=== PATIENT | female | born 1985 | race Caucasian/White ===

== ENCOUNTER 2023-01-17 11:46 | Emergency (ER) | payer OTHER, SELFPAY ==
[2023-01-17 12:07] VITALS: BP 120/81; PULSE 78; RESP 16; TEMP 36.8; O2SAT 98; BMI 22.8
[2023-01-17 12:20] VITALS: O2SAT 98
--- NOTE | 2023-01-17 12:25 | ED_ITS ---
HPI - Skin/Abscess/Foreign Bdy General Chief complaint: Skin/Abscess/Foreign Body Stated complaint: FACIAL SWELLING Time Seen by Provider: 01/17/23 12:17 Source: patient Mode of arrival: walk-in History of Present Illness HPI narrative: his patient's here with a tender sore area in her upper right lip extending implement up into her nasal area. She 1st started noticing it forty-eight hours ago but got much worse this morning. She has not had any previous skin infections or MRSA. She does not have any history of immunocompromising diseases diabetes or alcohol abuse. She's not had fever shakes or chills. She does not have any difficulty breathing. Related Data Allergies Allergy/AdvReac Type Severity Reaction Status Date / Time No Known Drug Allergies Allergy Verified 01/17/23 12:10 Exam Narrative Exam Narrative: awake alert pleasant. She got a palpable 2 cm abscess with a purulent area just within the nasal orifice on the right side. The left nares is normal. The rest craniofacial structures are normal extraocular muscles normal. Her tongue lip oral cavity floor the mouth cervical area are all unremarkable. This will need drainage and this was discussed with the patient. Constitutional Vital Signs, click to edit/add: Last Vital Signs Temp 98.2 F 01/17/23 12:07 Pulse 78 01/17/23 12:07 Resp 16 01/17/23 12:07 BP 120/81 01/17/23 12:07 Pulse Ox 98 01/17/23 12:20 O2 Del Method Room Air 01/17/23 12:20 Course Vital Signs Vital signs: Vital Signs Temperature 98.2 F 01/17/23 12:07 Pulse Rate 78 01/17/23 12:07 Respiratory Rate 16 01/17/23 12:07 Blood Pressure 120/81 01/17/23 12:07 Pulse Oximetry 98 01/17/23 12:07 Oxygen Delivery Method Room Air 01/17/23 12:07 Temperature 98.2 F 01/17/23 12:07 Pulse Rate 78 01/17/23 12:07 Respiratory Rate 16 01/17/23 12:07 Blood Pressure 120/81 01/17/23 12:07 Pulse Oximetry 98 01/17/23 12:20 Oxygen Delivery Method Room Air 01/17/23 12:20 MDM - Skin/Abscess/Foreign Bdy MDM Narrative Medical decision making narrative: procedure note/after lidocaine one percent aneesthesia with epinephrine this a randal was gently cleansed with Betadine and then a #11 blade was used to make a 4 mm incision in the area of maximum swelling and tenderness. There is a good amount of purulent material recovered. More mature was recovered after probing the area with a hemostat and with firm pressure. She tolerated very well. At this stage of advised her to get a gram of Rocephin of Ancef intravenously to facilitate achieving therapeutic levels. We'll then place her on doxycycline and Keflex. She's follow-up with primary care doctor within seventy-two hours. Discharge Plan Discharge Chief Complaint: Skin/Abscess/Foreign Body Clinical Impression: Abscess of face Patient Disposition: Home, Self-Care Time of Disposition Decision: 13:36 Additional Instructions: warm compresses Tylenol with Codeine as needed/doxycycline/Keflex Stand Alone Forms: Portal Instructions Referrals: Pedrito Hutchins MD [Primary Care Provider] - 1 week
[2023-01-17] MEDS: LIDOCAINE HCL 1%-EPINEPHRINE 1:100,000 20 ML MDV 10 ML INJ (12:52)
[2023-01-17 13:21] VITALS: BP 140/81; PULSE 78; RESP 18; O2SAT 99
[2023-01-17 13:42] VITALS: BP 146/90; PULSE 80; RESP 16; O2SAT 99
== END 2023-01-17 13:45 | disposition home or self-care (01) ==
PROVIDERS: Emergency Provider Emergency Medicine Emergency Medical Services; PCP Family Medicine
DX: L02.01 Cutaneous abscess of face (principal)
CPT/HCPCS: 10060; 96374; 99284

== ENCOUNTER 2023-02-03 20:11 | Outpatient (REF) | payer OTHER, SELFPAY ==
[2023-02-09 12:08] LABS: Age Gdln ACOG Testing Note (.); HPV Aptima Negative (Negative); IGP, Aptima HPV, rfx 16/18,45 Note (.)
== END 2023-02-03 20:12 | disposition home or self-care (01) ==
LOC: LAB 20:11
PROVIDERS: PCP Family Medicine; Visit Provider Obstetrics & Gynecology
DX: Z01.419 Encounter for gynecological examination (general) (routine) without abnormal findings (principal)
CPT/HCPCS: 87624; G0145

== ENCOUNTER 2023-06-13 08:25 | Outpatient (OUT) | payer MEDICAID, SELFPAY ==
--- OUTSIDE RECORDS SUMMARY | 2023-06-13 08:27 | XMS_ITS | CCD ---
Author Name Unknown Address [address] [place] [address] Organization [facility] Team Providers Care Tube Inspector Name Role Phone TEJAL, DR ROSA Primary Care Unavailable NEDRA, DR CAPUTO Attending Unavailable NEDRA, DR CAPUTO Admitting Unavailable HOY, DR ROSA Consulting Unavailable LISAY, DR ROSA Attending Unavailable HOY, DR ROSA Admitting Unavailable LISAY, DR ROSA Primary Care Unavailable HOY, DR ROSA Consulting Unavailable TEJAL, DR ROSA Attending Unavailable HOY, DR ROSA Admitting Unavailable HOY, DR ROSA Primary Care Unavailable HOClaudia, DR ROSA Primary Care Unavailable NEDRA, DR CAPUTO Consulting Unavailable NEDRA, DR CAPUTO Attending Unavailable NEDRA, DR CAPUTO Admitting Unavailable HOY, DR ROSA Consulting Unavailable TEJAL, DR ROSA Admitting Unavailable LISAY, DR ROSA Primary Care Unavailable TEJAL, DR ROSA Attending Unavailable WEST, DR SARAN Cano Consulting Unavailable TEJAL, DR ROSA Primary Care Unavailable NEDRA, DR CAPUTO Attending Unavailable NEDRA, DR CAPUTO Admitting Unavailable NEDRA, DR CAPUTO Consulting Unavailable TEJAL, DR ROSA Primary Care Unavailable NEDRA, DR CAPUTO Attending Unavailable NEDRA, DR CAPUTO Admitting Unavailable TEJAL, DR ROSA Consulting Unavailable TEJAL, DR ROSA Admitting Unavailable TEJAL, DR ROSA Primary Care Unavailable TEJAL, DR ROSA Attending Unavailable TEJAL, DR ROSA Primary Care Unavailable NEDRA, DR CAPUTO Consulting Unavailable NEDRA, DR CAPUTO Attending Unavailable NEDRA, DR CAPUTO Admitting Unavailable TEJAL, DR ROSA Consulting Unavailable TEJAL, DR ROSA Attending Unavailable TEJAL, DR ROSA Admitting Unavailable TEJAL, DR ROSA Primary Care Unavailable SEVEN CHERRY Attending Unavailable TEJAL, DR ROSA Primary Care Unavailable SEVEN CHERRY Admitting Unavailable SEVEN CHERRY Consulting Unavailable Problems Active Problems Problem Classification Problem Date Documented Date Episodic/Chronic Disorders of lipid metabolism (4 sources) Pure hypercholesterolemia, unspecified; Translations: [PURE HYPERCHOLESTEROLEMIA UNSPEC] Onset: 3 Chronic Headache; including migraine (4 sources) Headache; including migraine; Translations: [HEADACHE UNSPECIFIED] Onset: 2 Other female genital disorders (1 source) Abnormal uterine and vaginal bleeding, unspecified; Translations: [ABNORMAL UTERINE VAGINAL BLEED UNS] Onset: 2 Chronic Other upper respiratory infections (1 source) Chronic sinusitis, unspecified; Translations: [CHRONIC SINUSITIS UNSPECIFIED] Onset: 2 Chronic Unclassified (2 sources) CONTACT W/AND (SUSP) EXPOS COVID-19; Translations: [CONTACT W/AND (SUSP) EXPOS COVID-19] Onset: 2 Viral infection (1 source) COVID-19; Translations: [COVID-19] Onset: 2 Past or Other Problems Problem Classification Problem Date Documented Date Episodic/Chronic Deficiency and other anemia (1 source) Anemia, unspecified; Translations: [ANEMIA UNSPECIFIED] Onset: 12-10-2021 Episodic Diabetes mellitus without complication (1 source) Other abnormal glucose; Translations: [OTHER ABNORMAL GLUCOSE] Onset: 12-10-2021 Episodic Diabetes or abnormal glucose tolerance complicating ; childbirth; or the puerperium (4 sources) Personal history of gestational diabetes; Translations: [PERSONAL HISTORY GESTATIONAL DIAB] Onset: 05-25-2021 Episodic Disorders of teeth and jaw (4 sources) Other specified disorders of teeth and supporting structures; Translations: [OTH SPEC DISORDERS TEETH SUPP STRCT] Onset: 01-29-2022 Episodic Immunizations and screening for infectious disease (1 source) Encounter for screening for human papillomavirus (HPV); Translations: [ENC SCREENING HUMAN PAPILLOMAVIRUS] Onset: 01-16-2022 Episodic Other screening for suspected conditions (not mental disorders or infectious disease) (4 sources) Encounter for screening for malignant neoplasm of cervix; Translations: [ENC SCREENING MALIG NEOPLASM CERV] Onset: 01-14-2022 Episodic Syncope (4 sources) Syncope and collapse; Translations: [SYNCOPE AND COLLAPSE] Onset: 12-07-2021 Episodic Unclassified (1 source) CONTACT W/AND (SUSP) EXPOS COVID-19; Translations: [CONTACT W/AND (SUSP) EXPOS COVID-19] Onset: 10-02-2021 Results Test Name Value Interpretation Reference Range Facility LIPID PROFILEon 05-17-2022 CHOL-HDL RATIO NORM SEE BELOW Normal [facility] Comment on above: Result Comment: 3.3 - 4.4 LOW RISK 4.4 - 7.1 AVERAGE RISK 7.1 - 11.0 MODERATE RISK >11.0 HIGH RISK Performed By: #### C MP, LIPID #### [facility] [address] [address] [address] Heather Bowser Cholesterol [Mass/Vol] 209 mg/dL Critically high <=200 [facility] Comment on above: Performed By: #### C MP, LIPID #### [facility] [address] [address] [address] Heather Bowser Cholesterol in HDL [Mass/Vol] 63 mg/dL Critically high 40-60 [facility] Comment on above: Performed By: #### C MP, LIPID #### [facility] [address] [address] [address] Heather Bowser Cholesterol in LDL [Mass/Vol] 123.2 mg/dL Normal [facility] Comment on above: Performed By: #### C MP, LIPID #### [facility] [address] [address] [address] Heather Bowser Cholesterol.total/Cho lesterol in HDL [Mass ratio] 3.3 {ratio} Normal [facility] Comment on above: Performed By: #### C MP, LIPID #### [facility] [id number] Heather Bowser HDL NORMAL > or = 60 mg/dl - LO W CARDIOVASCULAR RISK <40 mg/dl - HIGH CARDIOVASCULAR RISK Normal [facility] Comment on above: Performed By: #### C MP, LIPID #### [facility] [address] [address] [address] Heather Bowser LDL CALC NORMAL SEE BELOW Normal [facility] Comment on above: Result Comment: <100 mg/dl OPTIMAL 100 - 129 mg/dl NEAR OR ABOVE OPTIMAL 130 - 159 mg/dl BORDERLINE HIGH 160 - 189 mg/dl HIGH >190 mg/dl VERY HIGH Performed By: #### C MP, LIPID #### [facility] [address] [place] [address] Dr. Heather Bowser Triglyceride [Mass/Vol] 114 mg/dL Normal <=150 [facility] Comment on above: Performed By: #### C MP, LIPID #### [facility] [address] [place] [address] Dr. Heather Bowser VLDL CALC 22.8 mg/dL Normal [facility] Comment on above: Performed By: #### C MP, LIPID #### [facility] [address] [place] [address] Dr. Heather Bowser PROF 14(COMP METB)on 023 Albumin [Mass/Vol] 4.0 g/dL Normal 3.4-5.0 [facility] Comment on above: Performed By: #### C MP, LIPID #### [facility] [address] [place] [address] Dr. Heather Bowser Albumin/Globulin [Mass ratio] 0.9 {ratio} Normal [facility] Comment on above: Performed By: #### C MP, LIPID #### [facility] [address] [place] [address] Dr. Heather Bowser ALP [Catalytic activity/Vol] 65 U/L Normal 46-116 [facility] Comment on above: Performed By: #### C MP, LIPID #### [facility] [address] [place] [address] Dr. Heather Bowser ALT [Catalytic activity/Vol] 17 U/L Normal 14-59 [facility] Comment on above: Performed By: #### C MP, LIPID #### [facility] [address] [place] [address] Dr. Heather Bowser Anion gap [Moles/Vol] 12.7 mmol/L Normal [facility] Comment on above: Performed By: #### C MP, LIPID #### [facility] [address] [place] [address] Dr. Heather Bowser AST [Catalytic activity/Vol] 20 U/L Normal 15-37 [facility] Comment on above: Performed By: #### C MP, LIPID #### [facility] [address] [address] [address] Heather Bowser Bilirubin [Mass/Vol] 1.0 mg/dL Normal 0.2-1.0 [facility] Comment on above: Performed By: #### C MP, LIPID #### [facility] [address] [place] [address] Dr. Heather Bowser Calcium [Mass/Vol] 9.4 mg/dL Normal 8.5-10.1 [facility] Comment on above: Performed By: #### C MP, LIPID #### [facility] [address] [place] [address] Dr. Heather Bowser Chloride [Moles/Vol] 104 mmol/L Normal 98-107 [facility] Comment on above: Performed By: #### C MP, LIPID #### [facility] [address] [place] [address] Dr. Heather Bowser CO2 [Moles/Vol] 28.3 mmol/L Normal 21.0-32.0 [facility] Comment on above: Performed By: #### C MP, LIPID #### [facility] [address] [place] [address] Dr. Heather Bowser Creatinine [Mass/Vol] 0.60 mg/dL Normal 0.55-1.02 [facility] Comment on above: Performed By: #### C MP, LIPID #### [facility] [address] [place] [address] Dr. Heather Bowser EGFR-AF SOUTH KOREAN >60 Normal >=60 [facility] Comment on above: Performed By: #### C MP, LIPID #### [facility] [address] [place] [address] Dr. Heather Bowser EGFR-NON AF [place]OREAN >60 Normal >=60 [facility] Comment on above: Performed By: #### C MP, LIPID #### [facility] [address] [place] [address] Dr. Heather Bowser Globulin (S) [Mass/Vol] 4.3 g/dL Normal [facility] Comment on above: Performed By: #### C MP, LIPID #### [facility] [address] [place] [address] Dr. Heather Bowser Glucose [Mass/Vol] 88 mg/dL Normal 74-106 [facility] Comment on above: Performed By: #### C MP, LIPID #### [facility] [address] [place] [address] Dr. Heather Bowser Potassium [Moles/Vol] 4.0 mmol/L Normal 3.5-5.1 [facility] Comment on above: Performed By: #### C MP, LIPID #### [facility] [address] [place] [address] Dr. Heather Bowser Protein [Mass/Vol] 8.3 g/dL Critically high 6.4-8.2 [facility] Comment on above: Performed By: #### C MP, LIPID #### [facility] [address] [place] [address] Dr. Heather Bowser Sodium [Moles/Vol] 141 mmol/L Normal 136-145 [facility] Comment on above: Performed By: #### C MP, LIPID #### [facility] [address] [place] [address] Dr. Heather Bowser Urea nitrogen [Mass/Vol] 12.0 mg/dL Normal 7.0-18.0 [facility] Comment on above: Performed By: #### C MP, LIPID #### [facility] [address] [place] [address] Dr. Heather Bowser Urea nitrogen/Creatinine [Mass ratio] 20.0 mg/mg Normal [facility] Comment on above: Performed By: #### C MP, LIPID #### [facility] [address] [place] [address] Dr. Heather Bowser XR SINUS WATERon 02-09-2022 XR SINUS WATER EXAMINATION: XR SINU S WATER HISTORY: Sinusitis COMPARISON: No relevant comparison available. FINDINGS: MAXILLARY: No mucosal thickening or fluid level. ETHMOID: No mucosal thickening or fluid level. OTHER: Negative. IMPRESSION: Clear paranasal sinuses Electronically authenticated by: SARAN VELASCO Date: 2022-02-09 08:40 Normal [facility] CBC AUTO DIFFon 02-08-2022 BASO # 0.1 103/ul Normal 0.0-0.1 [facility] Comment on above: Performed By: #### A 1C #### [facility] [address] [place] [address] Dr. Heather Bowser Basophils/100 WBC (Bld) 0.6 % Normal 0.2-2.0 [facility] Comment on above: Performed By: #### A 1C #### [facility] [address] [place] [address] Dr. Heather Bowser EO # 0.1 103/ul Normal 0.0-0.7 [facility] Comment on above: Performed By: #### A 1C #### [facility] [address] [place] [address] Dr. Heather Bowser Eosinophils/100 WBC (Bld) 1.4 % Normal 0.9-7.0 [facility] Comment on above: Performed By: #### A 1C #### [facility] [address] [place] [address] Dr. Heather Bowser Erythrocyte distribution width (RBC) [Ratio] 12.9 % Normal 11.0-15.0 [facility] Comment on above: Performed By: #### A 1C #### [facility] [address] [place] [address] Dr. Heather Bowser Hematocrit (Bld) [Volume fraction] 40.9 % Normal 36.0-48.0 [facility] Comment on above: Performed By: #### A 1C #### [facility] [address] [place] [address] Dr. Heather Bowser Hemoglobin (Bld) [Mass/Vol] 13.7 g/dL Normal 12.0-16.0 [facility] Comment on above: Performed By: #### A 1C #### [facility] [address] [place] [address] Dr. Heather Bowser IG # 0.02 10e3/ul Normal 0.00-0.03 [facility] Comment on above: Performed By: #### A 1C #### [facility] [address] [place] [address] Dr. Heather Bowser IG % 0.2 % Normal 0.0-0.5 [facility] Comment on above: Performed By: #### A 1C #### [facility] [address] [place] [address] Dr. Heather Bowser LYMPH # 2.3 103/ul Normal 1.2-3.8 [facility] Comment on above: Performed By: #### A 1C #### [facility] [address] [place] [address] Dr. Heather Bowser Lymphocytes/100 WBC (Bld) 27.6 % Normal 20.5-60.0 [facility] Comment on above: Performed By: #### A 1C #### [facility] [address] [place] [address] Dr. Heather Bowser MANUAL DIFF REQ NO Normal [facility] Comment on above: Performed By: #### A 1C #### [facility] [address] [place] [address] Dr. Heather Bowser MCH (RBC) [Entitic mass] 32.4 pg Normal 26.7-34.0 [facility] Comment on above: Performed By: #### A 1C #### [facility] [address] [place] [address] Dr. Heather Bowser MCHC (RBC) [Mass/Vol] 33.5 g/dL Normal 29.9-35.2 [facility] Comment on above: Performed By: #### A 1C #### [facility] [address] [place] [address] Dr. Heather Bowser MCV (RBC) [Entitic vol] 96.7 fL Normal 81.0-99.0 [facility] Comment on above: Performed By: #### A 1C #### [facility] [address] [place] [address] Dr. Heather Bowser MONO # 0.5 103/ul Normal 0.3-0.8 [facility] Comment on above: Performed By: #### A 1C #### [facility] [address] [place] [address] Dr. Heather Bowser Monocytes/100 WBC (Bld) 6.3 % Normal 1.7-12.0 [facility] Comment on above: Performed By: #### A 1C #### [facility] [address] [place] [address] Dr. Heather Bowser NEUT # 5.4 103/ul Normal 1.4-6.5 [facility] Comment on above: Performed By: #### A 1C #### [facility] [address] [place] [address] Dr. Heather Bowser Neutrophils/100 WBC (Bld) 63.9 % Normal 43.0-75.0 [facility] Comment on above: Performed By: #### A 1C #### [facility] [address] [place] [address] Dr. Heather Bowser Platelet mean volume (Bld) [Entitic vol] 10.3 fL Normal 9.5-13.5 [facility] Comment on above: Performed By: #### A 1C #### [facility] [address] [place] [address] Dr. Heather Bowser PLT 306 103/ul Normal 150-450 [facility] Comment on above: Performed By: #### A 1C #### [facility] [address] [place] [address] Dr. Heather Bowser RBC 4.23 106/ul Normal 4.20-5.40 [facility] Comment on above: Performed By: #### A 1C #### [facility] [address] [place] [address] Dr. Heather Bowser WBC 8.4 103/ul Normal 4.0-11.0 [facility] Comment on above: Performed By: #### A 1C #### [facility] [address] [place] [address] Dr. Heather Bowser GLYCOHEMOGLOBIN A1Con 2021 ADA RECOMMENDATION SEE BELOW Normal [facility] Comment on above: Result Comment: ADA RECOMMENDED LIMIT 4.0 - 6.0 ADA THERAPEUTIC TARGET < 7.0 ACTION SUGGESTED > 7.0 Performed By: #### C MP, LIPID #### [facility] [address] [place] [address] Dr. Heather Bowser Glucose [Mass/Vol] 108 mg/dL Normal [facility] Comment on above: Performed By: #### C MP, LIPID #### [facility] [address] [address] [address] Heather Bowser HbA1c (Bld) [Mass fraction] 5.4 % Normal 4.5-6.2 [facility] Comment on above: Performed By: #### C MP, LIPID #### [facility] [address] [address] [address] Heather Bowser PREG QUANT HCGon 02-08-2022 HCG QUANT <1 Normal [facility] Comment on above: Performed By: #### C MP, LIPID #### [facility] [address] [place] [address] Dr. Heather Bowser HCG RANGE SEE BELOW Normal [facility] Comment on above: Result Comment: 5-50 0.2-1 WEEK 50-500 1-2 WEEKS 100-5,000 2-3 WEEKS 500-10,000 3-4 WEEKS 1,000-50,000 4-5 WEEKS 10,000-100,000 5-6 WEEKS 15,000-200,000 6-8 WEEKS 10,000-100,000 2-3 MONTHS Performed By: #### C MP, LIPID #### [facility] [address] [place] [address] Dr. Heather Bowser PROTIMEon 02-08-2022 INR Coag (PPP) [Relative time] 0.95 {INR} Normal [facility] Comment on above: Performed By: #### C MP, LIPID #### [facility] [address] [place] [address] Dr. Heather Bowser INR GUIDELINES SEE BELOW Normal [facility] Comment on above: Result Comment: AUGUSTUS RED INR: 2.0 - 3.0 CONDITIONS NOT LISTED BELOW 2.5 - 3.5 FOR PROSTHETIC HEART VALVE REPLACEMENT 2.5 - 3.5 RECURRENT THROMBOSIS Performed By: #### C MP, LIPID #### [facility] [address] [place] [address] Dr. Heather Bowser PT Coag (PPP) [Time] 10.3 s Normal 9.0-11.6 [facility] Comment on above: Performed By: #### C MP, LIPID #### [facility] [address] [place] [address] Dr. Heather Bowser PTTon 02-08-2022 aPTT Coag (Bld) [Time] 26.8 s Normal 22.3-36.2 [facility] Comment on above: Performed By: #### C MP, LIPID #### [facility] [address] [address] [address] Heather Bowser TSHon 02-08-2022 TSH 1.356 uIU/mL Normal 0.358-3.740 [facility] Comment on above: Performed By: #### C MP, LIPID #### [facility] [address] [place] [address] Dr. Heather Bowser PAP ACOG PANEL 2: 30 to 65on 01-20-2022 . . Normal [facility] Comment on above: Result Comment: Perf ormed at: BA Performed By: #### C MP, LIPID #### [facility] [address] [place] [address] Dr. Heather Bowser Age Gdln ACOG Testing 30-65 Normal [facility] Comment on above: Performed By: #### C MP, LIPID #### [facility] [address] [place] [address] Dr. Heather Bowser DIAGNOSIS: Comment Normal [facility] Comment on above: Result Comment: UNSA TISFACTORY FOR EVALUATION. THIS SPECIMEN WAS RESCREENED PART OF OUR RUBBER CUTTING MACHINE TENDER PROGRAM. Performed at: BA Performed By: #### C MP, LIPID #### [facility] [address] [place] [address] Dr. Heather Bowser HPV Aptima Negative Normal Negative [facility] Comment on above: Result Comment: This nucleic acid amplification test detects fourteen high-risk HPV types (16,18,31,33,35,39,45,51,52,56,58,59,66,68) without differentiation. Performed at: =G Performed By: #### C MP, LIPID #### [facility] [address] [place] [address] Dr. Heather Bowser Methodology: Comment Normal [facility] Comment on above: Result Comment: This liquid based ThinPrep(R) pap test was screened with the use of an image guided system. Performed at: WB Performed By: #### C MP, LIPID #### [facility] [address] [place] [address] Dr. Heather Bowser Note: Comment Normal [facility] Comment on above: Result Comment: The Pap smear is a screening test designed to aid in the detection of premalignant and malignant conditions of the uterine cervix. It is not a diagnostic procedure and should not be used as the sole means of detecting cervical cancer. Both false-positive and false-negative reports do occur. . Performed at: WB Performed By: #### C MP, LIPID #### [facility] [address] [place] [address] Dr. Heather Bowser Performed by: Comment Normal [facility] Comment on above: Result Comment: Mark Kline, Dental Laboratory Supervisor (ASCP) Performed at: BA Performed By: #### C MP, LIPID #### [facility] [address] [place] [address] Dr. Heather Bowser QC reviewed by: Comment Normal [facility] Comment on above: Result Comment: Yin Infante, Dental Laboratory Supervisor (ASCP) Performed at: BA Performed By: #### C MP, LIPID #### [facility] [address] [place] [address] Dr. Heather Bowser Specimen adequacy: Comment Normal [facility] Comment on above: Result Comment: Spec imen processed and examined but unsatisfactory for evaluation of epithelial abnormality because of insufficient cellularity. Performed at: BA Performed By: #### C MP, LIPID #### [facility] [address] [address] [address] Heather Bowser T4, T3U, FTI LABCORPon 12-11 Free Thyroxine Index 2.7 Normal 1.2-4.9 [facility] Comment on above: Performed By: #### A 1C #### [facility] [address] [place] [address] Dr. Heather Bowser T3 Uptake 34 % Normal 24-39 [facility] Comment on above: Performed By: #### A 1C #### [facility] [address] [place] [address] Dr. Heather Bowser T4 [Mass/Vol] 7.8 ug/dL Normal 4.5-12.0 [facility] Comment on above: Performed By: #### A 1C #### [facility] [address] [place] [address] Dr. Heather Bowser LIVIER DIRECTon 12-10-2021 LIVIER Direct Negative Normal Negative [facility] Comment on above: Performed By: #### C MP, LIPID #### [facility] [address] [place] [address] Dr. Heather Bowser INSULINon 12-10-2021 Insulin 9.1 uIU/mL Normal 2.6-24.9 [facility] Comment on above: Performed By: #### A 1C #### [facility] [address] [place] [address] Dr. Heather Bowser ANTISTREPTOLYSIN O AB (ASO)o n 12-08-2021 Antistreptolysin O Ab 20.5 IU/mL Normal 0.0-200.0 [facility] Comment on above: Performed By: #### A 1C #### [facility] [address] [place] [address] Dr. Heather Bowser RHEUMATOID FACTORon 12-09-19 RA Latex Turbid. <10.0 Normal <14.0 [facility] Comment on above: Performed By: #### A 1C #### [facility] [address] [place] [address] Dr. Heather Bowser CBC AUTO DIFFon 12-07-2021 BASO # 0.0 103/ul Normal 0.0-0.1 [facility] Comment on above: Performed By: #### C MP, LIPID #### [facility] [address] [place] [address] Dr. Heather Bowser Basophils/100 WBC (Bld) 0.3 % Normal 0.2-2.0 [facility] Comment on above: Performed By: #### C MP, LIPID #### [facility] [address] [address] [address] Heather Bowser EO # 0.0 103/ul Normal 0.0-0.7 [facility] Comment on above: Performed By: #### C MP, LIPID #### [facility] [address] [address] [address] Heather Bowser Eosinophils/100 WBC (Bld) 0.2 % Critically low 0.9-7.0 [facility] Comment on above: Performed By: #### C MP, LIPID #### [facility] [address] [address] [address] Heather Bowser Erythrocyte distribution width (RBC) [Ratio] 12.9 % Normal 11.0-15.0 [facility] Comment on above: Performed By: #### C MP, LIPID #### [facility] [address] [place] [address] Dr. Heather Bowser Hematocrit (Bld) [Volume fraction] 43.0 % Normal 36.0-48.0 [facility] Comment on above: Performed By: #### C MP, LIPID #### [facility] [address] [place] [address] Dr. Heather Bowser Hemoglobin (Bld) [Mass/Vol] 14.2 g/dL Normal 12.0-16.0 [facility] Comment on above: Performed By: #### C MP, LIPID #### [facility] [address] [address] [address] Heather Bowser IG # 0.15 10e3/ul Critically high 0.00-0.03 [facility] Comment on above: Performed By: #### C MP, LIPID #### [facility] [address] [place] [address] Dr. Heather Bowser IG % 1.0 % Critically high 0.0-0.5 [facility] [place] [facility] Comment on above: Performed By: #### C MP, LIPID #### [facility] [address] [place] [address] Dr. Heather Bowser LYMPH # 4.4 103/ul Critically high 1.2-3.8 [facility] [place] Comment on above: Performed By: #### C MP, LIPID #### [facility] [address] [address] [address] Heather Bowser Lymphocytes/100 WBC (Bld) 30.6 % Normal 20.5-60.0 [facility] Comment on above: Performed By: #### C MP, LIPID #### [facility] [address] [address] [address] Heather Bowser MANUAL DIFF REQ NO Normal [facility] [place] Comment on above: Performed By: #### C MP, LIPID #### [facility] [address] [address] [address] Heather Bowser MCH (RBC) [Entitic mass] 32.1 pg Normal 26.7-34.0 [facility] Comment on above: Performed By: #### C MP, LIPID #### [facility] [address] [place] [address] Dr. Heather Bowser MCHC (RBC) [Mass/Vol] 33.0 g/dL Normal 29.9-35.2 [facility] Comment on above: Performed By: #### C MP, LIPID #### [facility] [address] [address] [address] Heather Bowser MCV (RBC) [Entitic vol] 97.1 fL Normal 81.0-99.0 [facility] Comment on above: Performed By: #### C MP, LIPID #### [facility] [address] [address] [address] Heather Bowser MONO # 1.3 103/ul Critically high 0.3-0.8 [facility] [place] Comment on above: Performed By: #### C MP, LIPID #### [facility] [address] [address] [address] Heather Bowser Monocytes/100 WBC (Bld) 8.7 % Normal 1.7-12.0 [facility] Comment on above: Performed By: #### C MP, LIPID #### [facility] [address] [address] [address] Heather Bowser NEUT # 8.6 103/ul Critically high 1.4-6.5 [facility] Comment on above: Performed By: #### C MP, LIPID #### [facility] [address] [address] [address] Heather Bowser Neutrophils/100 WBC (Bld) 59.2 % Normal 43.0-75.0 [facility] Comment on above: Performed By: #### C MP, LIPID #### [facility] [address] [address] [address] Heather Bowser Platelet mean volume (Bld) [Entitic vol] 9.6 fL Normal 9.5-13.5 [facility] Comment on above: Performed By: #### C MP, LIPID #### [facility] [address] [address] [address] Heather Bowser PLT 353 103/ul Normal 150-450 [facility] Comment on above: Performed By: #### C MP, LIPID #### [facility] [address] [address] [address] Heather Bowser RBC 4.43 106/ul Normal 4.20-5.40 [facility] Comment on above: Performed By: #### C MP, LIPID #### [facility] [address] [address] [address] Heather Bowser WBC 14.5 103/ul Critically high 4.0-11.0 [facility] Comment on above: Performed By: #### C MP, LIPID #### [facility] [address] [address] [address] Heather Bowser CRPon 12-07-2021 CRP [Mass/Vol] mg/L Normal <=1.0 [facility] Comment on above: Performed By: #### C MP, TSH, CRP, LIPID, URIC #### [facility] [address] [address] [address] Heather Bowser GLYCOHEMOGLOBIN A1Con 2021 ADA RECOMMENDATION SEE BELOW Normal [facility] Comment on above: Result Comment: ADA RECOMMENDED LIMIT 4.0 - 6.0 ADA THERAPEUTIC TARGET < 7.0 ACTION SUGGESTED > 7.0 Performed By: #### A 1C #### [facility] [address] [place] [address] Dr. Heather Bowser Glucose [Mass/Vol] 117 mg/dL Normal [facility] Comment on above: Performed By: #### A 1C #### [facility] [address] [place] [address] Dr. Heather Bowser HbA1c (Bld) [Mass fraction] 5.7 % Normal 4.5-6.2 [facility] Comment on above: Performed By: #### A 1C #### [facility] [address] [place] [address] Dr. Heather Bowser IRONon 12-07-2021 Iron [Mass/Vol] 153.0 ug/dL Normal 50.0-170.0 [facility] Comment on above: Performed By: #### I VINNIE #### [facility] [address] [place] [address] Dr. Heather Bowser LIPID PROFILEon 12-07-2021 CHOL-HDL RATIO NORM SEE BELOW Normal [facility] Comment on above: Result Comment: 3.3 - 4.4 LOW RISK 4.4 - 7.1 AVERAGE RISK 7.1 - 11.0 MODERATE RISK >11.0 HIGH RISK Performed By: #### C MP, TSH, CRP, LIPID, URIC #### [facility] [address] [place] [address] Dr. Heather Bowser Cholesterol [Mass/Vol] 240 mg/dL Critically high <=200 [facility] Comment on above: Performed By: #### C MP, TSH, CRP, LIPID, URIC #### [facility] [address] [place] [address] Dr. Heather Bowser Cholesterol in HDL [Mass/Vol] 57 mg/dL Normal 40-60 [facility] Comment on above: Performed By: #### C MP, TSH, CRP, LIPID, URIC #### [facility] [address] [place] [address] Dr. Heather Bowser Cholesterol in LDL [Mass/Vol] 157.2 mg/dL Normal [facility] Comment on above: Performed By: #### C MP, TSH, CRP, LIPID, URIC #### [facility] [address] [address] [address] Heather Bowser Cholesterol.total/Cho lesterol in HDL [Mass ratio] 4.2 {ratio} Normal [facility] Comment on above: Performed By: #### C MP, TSH, CRP, LIPID, URIC #### [facility] [address] [address] [address] Heather Bowser HDL NORMAL > or = 60 mg/dl - LO W CARDIOVASCULAR RISK <40 mg/dl - HIGH CARDIOVASCULAR RISK Normal [facility] Comment on above: Performed By: #### C MP, TSH, CRP, LIPID, URIC #### [facility] [address] [address] [address] Heather Bowser LDL CALC NORMAL SEE BELOW Normal [facility] Comment on above: Result Comment: <100 mg/dl OPTIMAL 100 - 129 mg/dl NEAR OR ABOVE OPTIMAL 130 - 159 mg/dl BORDERLINE HIGH 160 - 189 mg/dl HIGH >190 mg/dl VERY HIGH Performed By: #### C MP, TSH, CRP, LIPID, URIC #### [facility] [address] [address] [address] Heather Bowser Triglyceride [Mass/Vol] 129 mg/dL Normal <=150 [facility] Comment on above: Performed By: #### C MP, TSH, CRP, LIPID, URIC #### [facility] [address] [place] [address] Dr. Heather Bowser VLDL CALC 25.8 mg/dL Normal [facility] Comment on above: Performed By: #### C MP, TSH, CRP, LIPID, URIC #### [facility] [address] [place] [address] Dr. Heather Bowser PROF 14(COMP METB)on 022 Albumin [Mass/Vol] 3.6 g/dL Normal 3.4-5.0 [facility] Comment on above: Performed By: #### C MP, TSH, CRP, LIPID, URIC #### [facility] [address] [place] [address] Dr. Heather Bowser Albumin/Globulin [Mass ratio] 1.1 {ratio} Normal [facility] Comment on above: Performed By: #### C MP, TSH, CRP, LIPID, URIC #### [facility] [address] [place] [address] Dr. Heather Bowser ALP [Catalytic activity/Vol] 53 U/L Normal 46-116 [facility] Comment on above: Performed By: #### C MP, TSH, CRP, LIPID, URIC #### [facility] [address] [place] [address] Dr. Heather Bowser ALT [Catalytic activity/Vol] 20 U/L Normal 14-59 [facility] Comment on above: Performed By: #### C MP, TSH, CRP, LIPID, URIC #### [facility] [address] [place] [address] Dr. Heather Bowser Anion gap [Moles/Vol] 13.2 mmol/L Normal [facility] Comment on above: Performed By: #### C MP, TSH, CRP, LIPID, URIC #### [facility] [address] [place] [address] Dr. Heather Bowser AST [Catalytic activity/Vol] 10 U/L Critically low 15-37 [facility] Comment on above: Performed By: #### C MP, TSH, CRP, LIPID, URIC #### [facility] [address] [place] [address] Dr. Heather Bowser Bilirubin [Mass/Vol] 1.3 mg/dL Critically high 0.2-1.0 [facility] Comment on above: Performed By: #### C MP, TSH, CRP, LIPID, URIC #### [facility] [address] [place] [address] Dr. Heather Bowser Calcium [Mass/Vol] 8.6 mg/dL Normal 8.5-10.1 [facility] Comment on above: Performed By: #### C MP, TSH, CRP, LIPID, URIC #### [facility] [address] [place] [address] Dr. Heather Bowser Chloride [Moles/Vol] 103 mmol/L Normal 98-107 [facility] Comment on above: Performed By: #### C MP, TSH, CRP, LIPID, URIC #### [facility] [address] [place], [place] [id number] Dr. Heather Bowser CO2 [Moles/Vol] 28.2 mmol/L Normal 21.0-32.0 [facility] Comment on above: Performed By: #### C MP, TSH, CRP, LIPID, URIC #### [facility] [address] [place] [address] Dr. Heather Bowser Creatinine [Mass/Vol] 0.77 mg/dL Normal 0.55-1.02 [facility] Comment on above: Performed By: #### C MP, TSH, CRP, LIPID, URIC #### [facility] [address] [place] [address] Dr. Heather Bowser EGFR-AF SOUTH [place]OREAN >60 Normal >=60 [facility] Comment on above: Performed By: #### C MP, TSH, CRP, LIPID, URIC #### [facility] [address] [place] [address] Dr. Heather Bowser EGFR-NON AF [place]OREAN >60 Normal >=60 [facility] Comment on above: Performed By: #### C MP, TSH, CRP, LIPID, URIC #### [facility] [address] [place] [address] Dr. Heather Bowser Globulin (S) [Mass/Vol] 3.4 g/dL Normal [facility] Comment on above: Performed By: #### C MP, TSH, CRP, LIPID, URIC #### [facility] [address] [place] [address] Dr. Heather Bowser Glucose [Mass/Vol] 83 mg/dL Normal 74-106 [facility] Comment on above: Performed By: #### C MP, TSH, CRP, LIPID, URIC #### [facility] [address] [place] [address] Dr. Heather Bowser Potassium [Moles/Vol] 3.4 mmol/L Critically low 3.5-5.1 [facility] Comment on above: Performed By: #### C MP, TSH, CRP, LIPID, URIC #### [facility] [address] [place] [address] Dr. Heather Bowser Protein [Mass/Vol] 7.0 g/dL Normal 6.4-8.2 [facility] Comment on above: Performed By: #### C MP, TSH, CRP, LIPID, URIC #### [facility] [address] [place] [address] Dr. Heather Bowser Sodium [Moles/Vol] 141 mmol/L Normal 136-145 [facility] Comment on above: Performed By: #### C MP, TSH, CRP, LIPID, URIC #### [facility] [address] [place] [address] Dr. Heather Bowser Urea nitrogen [Mass/Vol] 19.0 mg/dL Critically high 7.0-18.0 [facility] Comment on above: Performed By: #### C MP, TSH, CRP, LIPID, URIC #### [facility] [address] [place] [address] Dr. Heather Bowser Urea nitrogen/Creatinine [Mass ratio] 24.7 mg/mg Normal [facility] Comment on above: Performed By: #### C MP, TSH, CRP, LIPID, URIC #### [facility] [address] [place] [address] Dr. Heather Bowser TSHon 12-07-2021 TSH 1.776 uIU/mL Normal 0.358-3.740 [facility] Comment on above: Performed By: #### C MP, TSH, CRP, LIPID, URIC #### [facility] [address] [place] [address] Dr. Heather Bowser URIC ACID SERUMon 12-07-2021 Urate [Mass/Vol] 4.3 mg/dL Normal 2.6-6.0 [facility] Comment on above: Performed By: #### C MP, TSH, CRP, LIPID, URIC #### [facility] [address] [place] [address] Dr. Heather Bowser SYMPTOMATIC COVID-19 ANTIGEN on 10-02-2021 EUA Statement SEE BELOW Normal [facility] Comment on above: Result Comment: This test has not been FDA cleared or approved, but has been authorized by the FDA under an Emergency Use Authorization (EUA) for use by authorized laboratories certified under CLIA that meet the requirements to perform moderate or high complexity testing. This test has been authorized only for the detection of proteins from SARS-CoV-2, not for any other viruses or pathogens. The emergency use of this test is authorized for the duration of the declaration that circumstances exist justifying the authorization of emergency use of in vitro diagnostic tests for detection and/or diagnosis of Covid-19 under section 564(b)(1) of the Act, 21 U.S.C. 360bbb-3(b)(1), unless the declaration is terminated or authorization is revoked sooner. Performed By: #### C MP, LIPID #### [facility] [address] [place] [address] Dr. Heather Bowser SARS-CoV-2 (COVID-19) RNA MARY+probe Ql (Unsp spec) Positive Critically abnormal NEGATIVE [facility] Comment on above: Performed By: #### C MP, LIPID #### [facility] [address] [place] [address] Dr. Heather Bowser GTT 2 HRon 05-25-2021 Glucose [Mass/Vol] 88 mg/dL Normal 74-106 [facility] Comment on above: Performed By: #### G TT2 #### [facility] [address] [place] [address] Dr. Heather Bowser Glucose [Mass/Vol] 152 mg/dL Normal [facility] Comment on above: Performed By: #### G TT2 #### [facility] [address] [place] [address] Dr. Heather Bowser Glucose [Mass/Vol] 112 mg/dL Normal [facility] Comment on above: Performed By: #### G TT2 #### [facility] [address] [place] [address] Dr. Heather Bowser Encounters Encounter Date Encounter Type Care Provider Facility Start: 05-17-2022 End: 05-18-[address] SHELLEY TOURE Facility:[facility] Start: 02-14-[address] SHELLEY TOURE Facility :[facility] Start: 02-08-2022 End: 02-09-[address] SHELLEY TOURE Facility:[facility] Start: 01-29-2022 End: 01-29-2022 ambulatory SEVEN CHERRY Facility:[facility] Start: 01-15-2022 ambulatory SHELLEY TOURE Facility :[facility] Start: 01-14-2022 End: 01-14-2022 ambulatory SHELLEY TOURE Facility:[facility] Start: 12-07-2021 End: 12-08-2021 ambulatory SHELLEY TOURE Facility:[facility] Start: 12-06-2021 End: 12-07-2021 ambulatory SHELLEY TOURE Facility:[facility] Start: 10-02-2021 End: 10-02-2021 ambulatory SHELLEY TOURE Facility:[facility] Start: 05-25-2021 End: 05-26-2021 ambulatory SHELLEY TOURE Facility:[facility] Payers Date Payer Category Payer Unknown [id number] 2.16.84 [id number] 1984 Unknown [id number] 2.16.84 [id number] 1984 Unknown [id number] 2.16.84 [id number] 1984 Unknown [id number] 2.16.84 [id number] 1984 Unknown [id number] 2.16.84 [id number] 1984 Unknown [id number] 2.16.84 [id number] 1984 Unknown [id number] 2.16.84 [id number] 1984 Unknown [id number] 2.16.84 [id number] 1984 Unknown [id number] 2.16.84 [id number] 1984 Unknown [id number] 2.16.84 [id number] 1984 Unknown [id number] 2.16.84 [id number] 1959 Self-pay [id number] 1960 Unknown [id number] Clinical Note 02-09-2022 Note Date & Type Note Facility 02-09-2022 Note PROCEDURE: XR SKULL MIN 4 VIEW COMPARISON: None. HISTORY: Sinusitis FINDINGS: BONES:No fracture, acute abnormality, or significant arthropathy. SOFT TISSUES:Negative. No visible soft tissue swelling. EFFUSION:None visible. OTHER: Negative. IMPRESSION: No acute abnormality Electronically authenticated by: SARAN VELASCO Date: 2022-02-09 08:40 [facility] Summary Purpose Family History No Family History Records Found Advance Directives No Advanced Directives Records Found Additional Source Comments INFORMATION SOURCE (unrecogn ized section and content) DATE CREATED AUTHOR 05/24/2022 [facility] FOR RECORDS PERTAINING TO PATIENTS WHO ARE OR HAVE BEEN ENROLLED IN A CHEMICAL DEPENDENCY/SUBSTANCEABUSE PROGRAM, SOME INFORMATION MAY BE OMITTED. This clinical summary was aggregated from multiple sources. Caution should be exercised in using it in the provision of clinical care. This summary normalizes information from multiple sources, and as a consequence, information in this document may materially change the coding, format and clinical context of patient data. In addition, data may be omitted in some cases. CLINICAL DECISIONS SHOULD BE BASED ON THE PRIMARY CLINICAL RECORDS. [employer] provides no warranty or guarantee of the accuracy or completeness of information in this document.
[2023-06-13 08:49] LABS: Basophils Percent Auto 0.5 % (0.2-2.0); Eosinophils Absolute Auto 0.1 10^3/uL (0.0-0.7); Eosinophils Percent Auto 1.5 % (0.9-7.0); Hematocrit 42.6 % (36.0-48.0); Immature Granulocytes Abs Auto 0.01 10^3/uL (0.00-0.03); Immature Granulocytes Pct Auto 0.1 % (0.0-0.5); Lymphocytes Absolute Auto 2.4 10^3/uL (1.2-3.8); Lymphocytes Percent Auto 32.9 % (20.5-60.0); Mean Corpuscular HGB Conc 32.9 g/dL (29.9-35.2); Mean Corpuscular Hemoglobin 32.1 pg (26.7-34.0); Mean Corpuscular Volume 97.7 fL (81.0-99.0); Mean Platelet Volume 10.1 fL (9.5-13.5); Monocytes Absolute Auto 0.6 10^3/uL (0.3-0.8); Monocytes Percent Auto 7.8 % (1.7-12.0); Neutrophils Absolute Auto 4.2 10^3/uL (1.4-6.5); Neutrophils Percent Auto 57.2 % (43.0-75.0); Platelet Count 298 10^3/uL (150-450); Red Blood Count 4.36 10^6/uL (4.20-5.40); Red Cell Distribution Width 12.9 % (11.0-15.0); White Blood Count 7.3 10^3/uL (4.0-11.0)
[2023-06-13 09:18] LABS: Estimated Average Glucose 100 mg/dL; Glycohemoglobin A1C 5.1 % (4.5-6.2)
[2023-06-13 09:39] LABS: Alanine Aminotransferase 17 U/L (14-59); Albumin Globulin Ratio 0.9; Albumin Level 3.4 g/dL (3.4-5.0); Alkaline Phosphatase 57 U/L (46-116); Anion Gap 9.6; Aspartate Amino Transferase 15 U/L (15-37); Calcium 8.8 mg/dL (8.5-10.1); Carbon Dioxide 27.6 mmol/L (21.0-32.0); Chloride 104 mmol/L (98-107); Chol HDL Ratio 3.2; Cholesterol 194 mg/dL (<=200); Estimated GFR (African America >60 (>=60); Estimated GFR (Non-African Ame >60 (>=60); Free T3 2.07 pg/mL (2.18-3.98); Glucose 84 mg/dL (74-106); HDL Cholesterol 61 mg/dL (40-60); Potassium 4.2 mmol/L (3.5-5.1); Sodium 137 mmol/L (136-145); Thyroid Stimulating Hormone 2.003 uIU/mL (0.358-3.740); Total Protein 7.4 g/dL (6.4-8.2); Triglycerides 105 mg/dL (<=150)
== END 2023-06-13 08:26 | disposition home or self-care (01) ==
LOC: LAB 08:25
PROVIDERS: PCP Family Medicine; Visit Provider Family Medicine
DX: Z00.00 Encounter for general adult medical examination without abnormal findings (principal); E78.5 Hyperlipidemia, unspecified; R73.09 Other abnormal glucose
CPT/HCPCS: 36415; 80053; 80061; 83036; 84436; 84443; 84481; 85025

== ENCOUNTER 2023-12-14 15:23 | Outpatient (OUT) | payer MEDICAID, SELFPAY ==
[2023-12-14 16:01] LABS: Basophils Percent Auto 0.4 % (0.2-2.0); Eosinophils Absolute Auto 0.1 10^3/uL (0.0-0.7); Hematocrit 38.6 % (36.0-48.0); Immature Granulocytes Abs Auto 0.03 10^3/uL (0.00-0.03); Immature Granulocytes Pct Auto 0.3 % (0.0-0.5); Lymphocytes Absolute Auto 3.4 10^3/uL (1.2-3.8); Lymphocytes Percent Auto 35.1 % (20.5-60.0); Mean Corpuscular HGB Conc 33.7 g/dL (29.9-35.2); Mean Corpuscular Hemoglobin 32.4 pg (26.7-34.0); Mean Corpuscular Volume 96.3 fL (81.0-99.0); Mean Platelet Volume 9.8 fL (9.5-13.5); Monocytes Absolute Auto 0.6 10^3/uL (0.3-0.8); Monocytes Percent Auto 6.4 % (1.7-12.0); Neutrophils Absolute Auto 5.4 10^3/uL (1.4-6.5); Neutrophils Percent Auto 56.8 % (43.0-75.0); Platelet Count 369 10^3/uL (150-450); Red Blood Count 4.01 10^6/uL (4.20-5.40); White Blood Count 9.6 10^3/uL (4.0-11.0)
[2023-12-14 16:10] LABS: Estimated Average Glucose 103 mg/dL; Glycohemoglobin A1C 5.2 % (4.5-6.2)
[2023-12-14 16:11] LABS: INR 0.99; Partial Thromboplastin Time 27.7 sec (22.3-36.2); Prothrombin Time 10.5 sec (9.0-11.6)
[2023-12-14 16:33] LABS: Free T4 1.02 ng/dL (0.76-1.46)
[2023-12-14 16:37] LABS: Thyroid Stimulating Hormone 1.723 uIU/mL (0.358-3.740)
[2023-12-14 16:44] LABS: HCG Quantitative <1 mIU/mL
[2023-12-16 04:08] LABS: Luteinizing Hormone(LH) 6.4 mIU/mL (.)
== END 2023-12-14 15:24 | disposition home or self-care (01) ==
LOC: LAB 15:24
PROVIDERS: PCP Family Medicine; Visit Provider Obstetrics & Gynecology
DX: N92.0 Excessive and frequent menstruation with regular cycle (principal); E28.2 Polycystic ovarian syndrome
CPT/HCPCS: 36415; 82626; 82627; 82670; 83001; 83002; 83036; 84439; 84443; 84702; 85025; 85610; 85730

== ENCOUNTER 2023-12-19 16:38 | Emergency (ER) | payer MEDICAID, SELFPAY ==
[2023-12-19 16:44] VITALS: BP 126/68; PULSE 88; TEMP 36.6; O2SAT 100; BMI 23.3
--- NOTE | 2023-12-19 16:59 | ED_ITS ---
HPI HPI - General Adult General Chief complaint: Allergic Reaction Stated complaint: POSS ALLERGIC RECTION TO MEDS Time Seen by Provider: 12/19/23 16:48 Source: patient Mode of arrival: walk-in History of Present Illness HPI narrative: This patient is here for skin rash. She states that 4 days ago she finished up twin antibiotic therapy that was prescribed by her doctors for a alleged spider bite over her right elbow. She finished both those antibiotics 4 days ago and was doing fine. 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 She was given a prescription for Flagyl and then on Thursday she developed a rash after starting the Flagyl on . She does not have any other food intake or allergic history to dietary products. She does not have any prolonged her lips tongue or oral cavity. She is not having any whelps or hives just kind of a diffuse nonraised punctate type rash on her trunk torso and extremities. She did take some Alessandro adryl this morning. She is not on any steroids. She is not running a fever. She says her BV symptoms are not that severe at this time. Related Data Allergies Allergy/AdvReac Type Severity Reaction Status Date / Time No Known Drug Allergies Allergy Verified 01/17/23 12:10 Opioid HPI Opioid Management Most Recent Opioid Data: No Data to Display Exam Narrative Exam Narrative: Awake alert pleasant no apparent distress. She has a small area of erythema over the right elbow that was previously treated and is nontender with no purulent drainage or discharge. Otherwise she has a rash on her upper extremities and abdomen on 9 raised punctate type small eruption. There is no hives or whelps there is no target lesions there is no petechia or purpura. There is no desquamation of the skin. Palms are spared. Constitutional Vital Signs, click to edit/add: Last Vital Signs Temp 97.9 F 12/19/23 16:44 Pulse 88 12/19/23 16:44 Resp 16 12/19/23 16:44 BP 126/68 12/19/23 16:44 Pulse Ox 100 12/19/23 16:44 O2 Del Method Room Air 12/19/23 16:44 Course Vital Signs Vital signs: Vital Signs Temperature 97.9 F 12/19/23 16:44 Pulse Rate 88 09/14/24 16:44 Respiratory Rate 16 12/19/23 16:44 Blood Pressure 126/68 12/19/23 16:44 Pulse Oximetry 100 12/19/23 16:44 Oxygen Delivery Method Room Air 12/19/23 16:44 Temperature 97.9 F 12/19/23 16:44 Pulse Rate 88 12/19/23 16:44 Respiratory Rate 16 12/19/23 16:44 Blood Pressure 126/68 12/19/23 16:44 Pulse Oximetry 100 12/19/23 16:44 Oxygen Delivery Method Room Air 12/19/23 16:44 Medical Decision Making MDM Narrative Medical decision making narrative: Clinically this appears to be a drug eruption from Flagyl. She has no other allergies. I will start her on clindamycin 300 twice daily for 7 days but I do not want her to start it until Thursday. 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 Follow-up with SENIOR PRODUCT MARKETING MANAGER as necessary Referrals: Pedrito Hutchins MD [Primary Care Provider] - 1 week
--- OUTSIDE RECORDS SUMMARY | 2023-12-19 17:09 | XMS_ITS | CCD ---
Author Organization [facility] Care Team Providers Care Shade Hanger Name Role Phone TEJAL, DR ROSA Primary Care Unavailable NEDRA, DR CAPUTO Attending Unavailable NEDRA, DR CAPUTO Admitting Unavailable HOY, DR ROSA Consulting Unavailable LISAY, DR ROSA Attending Unavailable HOY, DR ROSA Admitting Unavailable HOY, DR ROSA Primary Care Unavailable HOY, DR ROSA Consulting Unavailable TEJAL, DR ROSA Attending Unavailable HOClaudia, DR ROSA Admitting Unavailable HOY, DR ROSA [...] Unavailable TEJAL, DR ROSA Primary Care Unavailable SEEVN CHERRY Admitting Unavailable SEVEN CHERRY Consulting Unavailable SHELLEY TOURE Primary Care Unavailable JATINDER CHOWDARY Attending Unavailable HARSHAL SNEED Attending Unavailable Allergies Allergy Classification Reported Allergen(s) Allergy Type Date of Onset Reaction(s) Facility (1 source) levoFLOXacin; Translations: [LEVOFLOXACIN] Drug Allergy 12-05-2023 [facility] Repository Problems Active Problems Problem Classification Problem Date [...] Translations: [CHRONIC SINUSITIS UNSPECIFIED] Onset: 2 Chronic Skin and subcutaneous tissue infections (1 source) Cellulitis of right upper limb; Translations: [Cellulitis of right upper limb] Onset: 4 Episodic Unclassified (2 sources) CONTACT W/AND (SUSP) EXPOS COVID-19; Translations: [CONTACT W/AND (SUSP) EXPOS COVID-19] Onset: 2 Unclassified (2 sources) Wound Check Onset: 4 Viral infection (1 source) COVID-19; Translations: [COVID-19] [...] Test Name Value Interpretation Reference Range Facility BASIC METABOLIC PANLon 12-04 Anion gap [Moles/Vol] 6 mmol/L Normal 5-15 [facility] Comment on above: Performed By: #### C BCA, BMP #### [facility] ([id number]) [address] [place] [address] 85856 Calcium [Mass/Vol] 8.9 mg/dL Normal 8.5-10.5 [facility] Comment on above: Performed By: #### C BCA, BMP #### [facility] ([id number]) [address] [place] [address] 95885 Chloride [Moles/Vol] 105 mmol/L Normal 98-109 [facility] Comment on above: Performed By: #### C BCA, BMP #### [facility] ([id number]) [address] [place] [address] 46842 CO2 [Moles/Vol] 24 mmol/L Normal 22-32 [facility] Comment on above: Performed By: #### C BCA, BMP #### [facility] ([id number]) [address] [place] [address] 44802 Creatinine [Mass/Vol] 0.60 mg/dL Normal 0.40-1.00 [facility] Comment on above: Result Comment: METH OD TRACEABLE TO IDMS STANDARD Performed By: #### C BCA, BMP #### [facility] ([id number]) [address] [place] [address] 89174 eGFR (CKD-EPI) NON-RACE DEPENDENT >90 Normal >59 [facility] Comment on above: Result Comment: Reported eGFR is based on the CKD-EPI 2020 equation that does not use a race coefficient. Performed By: #### C SHAHLA, BMP #### [facility] ([id number]) [address] [place] [address] 00022 Glucose [Mass/Vol] 96 mg/dL Normal 65-99 [facility] Comment on above: Performed By: #### C SHAHLA, BMP #### [facility] ([id number]) [address] [place] [address] 52071 Potassium [Moles/Vol] 3.9 mmol/L Normal 3.5-5.0 [facility] Comment on above: Performed By: #### C SHAHLA, BMP #### [facility] ([id number]) [address] [place] [address] 86330 Sodium [Moles/Vol] 135 mmol/L Normal 134-146 [facility] Comment on above: Performed By: #### C BCA, BMP #### [facility] ([id number]) [address] [place] [address] 83091 Urea nitrogen [Mass/Vol] 15 mg/dL Normal 5-23 [facility] Comment on above: Performed By: #### C BCA, BMP #### [facility] ([id number]) [address] [place] [address] 83803 CBC AND AUTO DIFFon 12-05-19 24 ABSOLUTE BASOPHIL 0.1 X10E9/L Normal 0.0-0.2 [facility] Comment on above: Performed By: #### C BCA, BMP #### [facility] ([id number]) [address] [place] [address] 46580 ABSOLUTE NEUTROPHIL 9.9 X10E9/L High 1.5-6.6 [facility] Comment on above: Performed By: #### C SHAHLA, BMP #### [facility] ([id number]) [address] [place] [address] 75223 Basophils/100 WBC (Bld) 0.5 % Normal [facility] Comment on above: Performed By: #### C SHAHLA, BMP #### [facility] ([id number]) [address] [place] [address] 31082 Eosinophils (Bld) [#/Vol] 0.1 10*3/uL Normal 0.0-0.4 [facility] Comment on above: Performed By: #### C SHAHLA, BMP #### [facility] ([id number]) [address] [place] [address] 40438 Eosinophils/100 WBC (Bld) 0.8 % Normal [facility] Comment on above: Performed By: #### Shamika GALE, BMP #### [facility] ([id number]) [address] [place] [address] 58399 Erythrocyte distribution width (RBC) [Ratio] 13.2 % Normal 11.5-15.0 [facility] Comment on above: Performed By: #### C SHAHLA, BMP #### [facility] ([id number]) [address] [place] [address] 62551 Hematocrit (Bld) [Volume fraction] 42.0 % Normal 35-47 [facility] Comment on above: Performed By: #### C SHAHLA, BMP #### [facility] ([id number]) [address] [place] [address] 78677 Hemoglobin (Bld) [Mass/Vol] 14.1 g/dL Normal 11.7-15.5 [facility] Comment on above: Performed By: #### Shamika GALE, BMP #### [facility] ([id number]) [address] [place] [address] 67321 Lymphocytes (Bld) [#/Vol] 2.0 10*3/uL Normal 1.0-3.5 [facility] Comment on above: Performed By: #### C BCA, BMP #### [facility] ([id number]) [address] [place] [address] 35751 Lymphocytes/100 WBC (Bld) 15.4 % Normal [facility] Comment on above: Performed By: #### C BCA, BMP #### [facility] ([id number]) [address] [place] [address] 54804 MCH (RBC) [Entitic mass] 32.3 pg Normal 27-34 [facility] Comment on above: Performed By: #### C BCA, BMP #### [facility] ([id number]) [address] [place] [address] 38666 MCHC (RBC) [Mass/Vol] 33.5 g/dL Normal 32-36 [facility] Comment on above: Performed By: #### C BCA, BMP #### [facility] ([id number]) [address] [place] [address] 32910 MCV (RBC) [Entitic vol] 97 fL Normal 80-100 [facility] Comment on above: Performed By: #### C BCA, BMP #### [facility] ([id number]) [address] [place] [address] 13381 Monocytes (Bld) [#/Vol] 0.9 10*3/uL Normal 0-0.9 [facility] Comment on above: Performed By: #### C BCA, BMP #### [facility] ([id number]) [address] [place] [address] 73856 Monocytes/100 WBC (Bld) 6.6 % Normal [facility] Comment on above: Performed By: #### C BCA, BMP #### [facility] ([id number]) [address] [place] [address] 98070 Neutrophils/100 WBC (Bld) 76.7 % Normal [facility] Comment on above: Performed By: #### C BCA, BMP #### [facility] ([id number]) [address] [place] [address] 07193 Platelet mean volume (Bld) [Entitic vol] 8.6 fL Normal 7-12 [facility] Comment on above: Performed By: #### C SHAHLA, BMP #### [facility] ([id number]) [address] [place] [address] 61309 Platelets (Bld) [#/Vol] 290 10*3/uL Normal 150-450 [facility] Comment on above: Performed By: #### C SHAHLA, BMP #### [facility] ([id number]) [address] [place] [address] 51233 RBC COUNT 4.35 X10E12/L Normal 3.80-5.20 [facility] Comment on above: Performed By: #### C SHAHLA, BMP #### [facility] ([id number]) [address] [place] [address] 59486 WBC (Bld) [#/Vol] 12.9 10*3/uL High 4.0-11.0 [facility] Comment on above: Performed By: #### C SHAHLA, BMP #### [facility] ([id number]) [address] [place] [address] 50660 LIPID PROFILEon 05-17-2022 CHOL-HDL RATIO NORM SEE BELOW Normal [facility] Comment on above: Result Comment: 3.3 - 4.4 LOW RISK 4.4 - 7.1 AVERAGE RISK 7.1 - 11.0 MODERATE RISK >11.0 HIGH RISK Performed By: #### C MP, LIPID #### [facility] [address] [place] [address] Dr. Heather Bowser Cholesterol [Mass/Vol] 209 mg/dL Critically high <=200 [facility] Comment on above: Performed By: #### C MP, LIPID #### [facility] [address] [address] [address] Heather Bowser Cholesterol in HDL [Mass/Vol] 63 mg/dL Critically high 40-60 [facility] Comment on above: Performed By: #### C MP, LIPID #### [facility] [address] [address] [address] Heather Bowser Cholesterol in LDL [Mass/Vol] 123.2 mg/dL Normal [facility] Comment on above: Performed By: #### C MP, LIPID #### [facility] [address] [place] [address] Dr. Heather Bowser Cholesterol.total/Cho lesterol in HDL [Mass ratio] 3.3 {ratio} Normal [facility] Comment on above: Performed By: #### C MP, LIPID #### [facility] [address] [place] [address] Dr. Heather Bowser HDL NORMAL > or = 60 mg/dl - LOW CARDIOVASCULAR RISK <40 mg/dl - HIGH CARDIOVASCULAR RISK Normal [facility] Comment on above: Performed By: #### C MP, LIPID #### [facility] [address] [place] [address] Dr. Heather Bowser LDL CALC NORMAL SEE BELOW Normal [facility] Comment on above: Result Comment: <100 mg/dl OPTIMAL 100 - 129 mg/dl NEAR OR ABOVE OPTIMAL 130 - 159 mg/dl BORDERLINE HIGH 160 - 189 mg/dl HIGH >190 mg/dl VERY HIGH Performed By: #### C MP, LIPID #### [facility] [address] [address] [address] Heather Bowser Triglyceride [Mass/Vol] 114 mg/dL Normal <=150 [facility] Comment on above: Performed By: #### C MP, LIPID #### [facility] [address] [address] [address] Heather Bowser VLDL CALC 22.8 mg/dL Normal [facility] Comment on above: Performed By: #### C MP, LIPID #### [facility] [address] [address] [address] Heather Bowser PROF 14(COMP METB)on 023 Albumin [Mass/Vol] 4.0 g/dL Normal 3.4-5.0 [facility] Comment on above: Performed By: #### C MP, LIPID #### [facility] [address] [address] [address] Heather Bowser Albumin/Globulin [Mass ratio] 0.9 {ratio} Normal [facility] Comment on above: Performed By: #### C MP, LIPID #### [facility] [address] [address] [address] Heather Bowser ALP [Catalytic activity/Vol] 65 U/L Normal 46-116 [facility] Comment on above: Performed By: #### C MP, LIPID #### [facility] [address] [place] [address] Dr. Heather Bowser ALT [Catalytic activity/Vol] 17 U/L Normal 14-59 [facility] Comment on above: Performed By: #### C MP, LIPID #### [facility] [address] [address] [address] Heather Bowser Anion gap [Moles/Vol] 12.7 mmol/L Normal [facility] Comment on above: Performed By: #### C MP, LIPID #### [facility] [address] [address] [address] Heather Bowser AST [Catalytic activity/Vol] 20 U/L Normal 15-37 [facility] Comment on above: Performed By: #### C MP, LIPID #### [facility] [address] [address] [address] Heather Bowser Bilirubin [Mass/Vol] 1.0 mg/dL Normal 0.2-1.0 [facility] Comment on above: Performed By: #### C MP, LIPID #### [facility] [address] [address] [address] Heather Bowser Calcium [Mass/Vol] 9.4 mg/dL Normal 8.5-10.1 [facility] Comment on above: Performed By: #### C MP, LIPID #### [facility] [address] [address] [address] Heather Bowser Chloride [Moles/Vol] 104 mmol/L Normal 98-107 [facility] Comment on above: Performed By: #### C MP, LIPID #### [facility] [address] [address] [address] Heather Bowser CO2 [Moles/Vol] 28.3 mmol/L Normal 21.0-32.0 [facility] Comment on above: Performed By: #### C MP, LIPID #### [facility] [address] [address] [address] Heather Bowser Creatinine [Mass/Vol] 0.60 mg/dL Normal 0.55-1.02 [facility] Comment on above: Performed By: #### C MP, LIPID #### [facility] [address] [address] [address] Heather Bowser EGFR-AF ETHIOPIAN >60 Normal >=60 [facility] Comment on above: Performed By: #### C MP, LIPID #### [facility] [address] [address] [address] Heather Bowser EGFR-NON AF ETHIOPIAN >60 Normal >=60 [facility] Comment on above: Performed By: #### C MP, LIPID #### [facility] [address] [address] [address] Heather Bowser Globulin (S) [Mass/Vol] 4.3 g/dL Normal [facility] Comment on above: Performed By: #### C MP, LIPID #### [facility] [address] [address] [address] Heather Bowser Glucose [Mass/Vol] 88 mg/dL Normal 74-106 [facility] Comment on above: Performed By: #### C MP, LIPID #### [facility] [address] [address] [address] Heather Bowser Potassium [Moles/Vol] 4.0 mmol/L Normal 3.5-5.1 [facility] Comment on above: Performed By: #### C MP, LIPID #### [facility] [address] [place] [address] Dr. Heather Bowser Protein [Mass/Vol] 8.3 g/dL Critically high 6.4-8.2 [facility] Comment on above: Performed By: #### C MP, LIPID #### [facility] [address] [place] [address] Dr. Heather Bowser Sodium [Moles/Vol] 141 mmol/L Normal 136-145 [facility] Comment on above: Performed By: #### C MP, LIPID #### [facility] [address] [place] [address] Dr. Heather Bowser Urea nitrogen [Mass/Vol] 12.0 mg/dL Normal 7.0-18.0 [facility] Comment on above: Performed By: #### C MP, LIPID #### [facility] [address] [place] [address] Dr. Heather Bowser Urea nitrogen/Creatinine [Mass ratio] 20.0 mg/mg Normal [facility] Comment on above: Performed By: #### C MP, LIPID #### [facility] [address] [place] [address] Dr. Heather Bowser XR SINUS WATERon 02-09-2022 XR SINUS WATER EXAMINATION: XR SINUS WATER HISTORY: Sinusitis COMPARISON: No relevant comparison available. FINDINGS: MAXILLARY: No mucosal thickening or fluid level. ETHMOID: No mucosal thickening or fluid level. OTHER: Negative. IMPRESSION: Clear paranasal sinuses Electronically authenticated by: SARAN VELASCO Date: 2022-02-09 08:40 Normal [facility] CBC AUTO DIFFon 02-08-2022 BASO # 0.1 103/ul Normal 0.0-0.1 [facility] Comment on above: Performed By: #### A 1C #### [facility] [address] [place] [address] Dr. Heather Bowser Basophils/100 WBC (Bld) 0.6 % Normal 0.2-2.0 [facility] Comment on above: Performed By: #### A 1C #### [facility] [address] [place] [address] Dr. Heather Bowser EO # 0.1 103/ul Normal 0.0-0.7 [facility] Comment on above: Performed By: #### A 1C #### [facility] [address] [place] [address] Dr. Heather Bowser Eosinophils/100 WBC (Bld) 1.4 % Normal 0.9-7.0 [facility] Comment on above: Performed By: #### A 1C #### [facility] [address] [place] [address] Dr. Heather Bowser Erythrocyte distribution width (RBC) [Ratio] 12.9 % Normal 11.0-15.0 [facility] Comment on above: Performed By: #### A 1C #### [facility] [address] [place] [address] Dr. Heather Bowser Hematocrit (Bld) [Volume fraction] 40.9 % Normal 36.0-48.0 [facility] Comment on above: Performed By: #### A 1C #### [facility] [address] [place] [address] Dr. Heather Bowser Hemoglobin (Bld) [Mass/Vol] 13.7 g/dL Normal 12.0-16.0 [facility] Comment on above: Performed By: #### A 1C #### [facility] [address] [place] [address] Dr. Heather Bowser IG # 0.02 10e3/ul Normal 0.00-0.03 [facility] Comment on above: Performed By: #### A 1C #### [facility] [address] [place] [address] Dr. Heather Bowser IG % 0.2 % Normal 0.0-0.5 [facility] Comment on above: Performed By: #### A 1C #### [facility] [address] [place] [address] Dr. Heather Bowser LYMPH # 2.3 103/ul Normal 1.2-3.8 [facility] Comment on above: Performed By: #### A 1C #### [facility] [address] [place] [address] Dr. Heather Bowser Lymphocytes/100 WBC (Bld) 27.6 % Normal 20.5-60.0 [facility] Comment on above: Performed By: #### A 1C #### [facility] [address] [place] [address] Dr. Heather Bowser MANUAL DIFF REQ NO Normal [facility] Comment on above: Performed By: #### A 1C #### [facility] [address] [place] [address] Dr. Heather Bowser MCH (RBC) [Entitic mass] 32.4 pg Normal 26.7-34.0 [facility] Comment on above: Performed By: #### A 1C #### [facility] [address] [place] [address] Dr. Heather Bowser MCHC (RBC) [Mass/Vol] 33.5 g/dL Normal 29.9-35.2 [facility] Comment on above: Performed By: #### A 1C #### [facility] [address] [place] [address] Dr. Heather Bowser MCV (RBC) [Entitic vol] 96.7 fL Normal 81.0-99.0 [facility] Comment on above: Performed By: #### A 1C #### [facility] [address] [place] [address] Dr. Heather Bowser MONO # 0.5 103/ul Normal 0.3-0.8 [facility] Comment on above: Performed By: #### A 1C #### [facility] [address] [place] [address] Dr. Heather Bowser Monocytes/100 WBC (Bld) 6.3 % Normal 1.7-12.0 [facility] Comment on above: Performed By: #### A 1C #### [facility] [address] [place] [address] Dr. Heather Bowser NEUT # 5.4 103/ul Normal 1.4-6.5 [facility] Comment on above: Performed By: #### A 1C #### [facility] [address] [place] [address] Dr. Heather Bowser Neutrophils/100 WBC (Bld) 63.9 % Normal 43.0-75.0 [facility] Comment on above: Performed By: #### A 1C #### [facility] [address] [address] [address] Heather Bowser Platelet mean volume (Bld) [Entitic vol] 10.3 fL Normal 9.5-13.5 [facility] Comment on above: Performed By: #### A 1C #### [facility] [address] [address] [address] Heather Bowser PLT 306 103/ul Normal 150-450 [facility] Comment on above: Performed By: #### A 1C #### [facility] [address] [place] [address] Dr. Heather Bowser RBC 4.23 106/ul Normal 4.20-5.40 [facility] Comment on above: Performed By: #### A 1C #### [facility] [address] [place] [address] Dr. Heather Bowser WBC 8.4 103/ul Normal 4.0-11.0 [facility] Comment on above: Performed By: #### A 1C #### [facility] [address] [place] [address] Dr. Heather Bowser GLYCOHEMOGLOBIN A1Con 2021 ADA RECOMMENDATION SEE BELOW Normal [facility] Comment on above: Result Comment: ADA RECOMMENDED LIMIT 4.0 - 6.0 ADA THERAPEUTIC TARGET < 7.0 ACTION SUGGESTED > 7.0 Performed By: #### C MP, LIPID #### [facility] [address] [place] [address] Dr. Heather Bowser Glucose [Mass/Vol] 108 mg/dL Normal [facility] Comment on above: Performed By: #### C MP, LIPID #### [facility] [address] [place] [address] Dr. Heather Bowser HbA1c (Bld) [Mass fraction] 5.4 % Normal 4.5-6.2 [facility] Comment on above: Performed By: #### C MP, LIPID #### [facility] [address] [place] [address] Dr. Heather Bowser PREG QUANT HCGon 02-08-2022 HCG QUANT <1 Normal [facility] Comment on above: Performed By: #### C MP, LIPID #### [facility] [address] [place] [address] Dr. Heather Bowser HCG RANGE SEE BELOW Normal [facility] Comment on above: Result Comment: 5-50 0.2-1 WEEK 50-500 1-2 WEEKS 100-5,000 2-3 WEEKS 500-10,000 3-4 WEEKS 1,000-50,000 4-5 WEEKS 10,000-100,000 5-6 WEEKS 15,000-200,000 6-8 WEEKS 10,000-100,000 2-3 MONTHS Performed By: #### C MP, LIPID #### [facility] [address] [place] [address] Dr. Heather Bowser PROTIMEon 02-08-2022 INR Coag (PPP) [Relative time] 0.95 {INR} Normal [facility] Comment on above: Performed By: #### C MP, LIPID #### [facility] [address] [place] [address] Dr. Heather Bowser INR GUIDELINES SEE BELOW Normal [facility] Comment on above: Result Comment: AUGUSTUS RED INR: 2.0 - 3.0 CONDITIONS NOT LISTED BELOW 2.5 - 3.5 FOR PROSTHETIC HEART VALVE REPLACEMENT 2.5 - 3.5 RECURRENT THROMBOSIS Performed By: #### C MP, LIPID #### [facility] [address] [place] [address] Dr. Heather Bowser PT Coag (PPP) [Time] 10.3 s Normal 9.0-11.6 [facility] Comment on above: Performed By: #### C MP, LIPID #### [facility] [address] [place] [address] Dr. Heather Bowser PTTon 02-08-2022 aPTT Coag (Bld) [Time] 26.8 s Normal 22.3-36.2 [facility] Comment on above: Performed By: #### C MP, LIPID #### [facility] [address] [place] [address] Dr. Heather Bowser TSHon 02-08-2022 TSH 1.356 uIU/mL Normal 0.358-3.740 [facility] [facility] Comment on above: Performed By: #### C MP, LIPID #### [facility] [address] [address] [address] Heather Bowser PAP ACOG PANEL 2: 30 to 65on 01-20-2022 . . Normal [facility] Comment on above: Result Comment: Perf ormed at: BA Performed By: #### C MP, LIPID #### [facility] [address] [address] [address] Heather Bowser Age Gdln ACOG Testing 30-65 Normal [facility] Comment on above: Performed By: #### C MP, LIPID #### [facility] [address] [place] [address] Dr. Heather Bowser DIAGNOSIS: Comment Normal [facility] Comment on above: Result Comment: UNSA TISFACTORY FOR EVALUATION. THIS SPECIMEN WAS RESCREENED PART OF OUR ADMINISTRATIVE SUPPORT MANAGER PROGRAM. Performed at: BA Performed By: #### C MP, LIPID #### [facility] [address] [place] [address] Dr. Heather Bowser HPV Aptima Negative Normal Negative [facility] Comment on above: Result Comment: This nucleic acid amplification test detects fourteen high-risk HPV types (16,18,31,33,35,39,45,51,52,56,58,59,66,68) without differentiation. Performed at: =G Performed By: #### C MP, LIPID #### [facility] [address] [place] [address] Dr. Heather Bowser Methodology: Comment Normal [facility] Comment on above: Result Comment: This liquid based ThinPrep(R) pap test was screened with the use of an image guided system. Performed at: WB Performed By: #### C MP, LIPID #### [facility] [address] [place] [address] Dr. Heather Bowser Note: Comment Normal [facility] Comment on above: Result Comment: The [...] Performed By: #### C MP, LIPID #### [facility] [address] [place] [address] Dr. Heather Bowser Performed by: Comment Normal [facility] Comment on above: Result Comment: Mark Kline, Test And Research Reactor Operator (ASCP) Performed at: BA Performed By: #### C MP, LIPID #### [facility] [address] [place] [address] Dr. Heather Bowser QC reviewed by: Comment Normal [facility] Comment on above: Result Comment: Yin Infante, Test And Research Reactor Operator (ASCP) Performed at: BA Performed By: #### C MP, LIPID #### [facility] [address] [place] [address] Dr. Heather Bowser Specimen adequacy: Comment Normal [facility] Comment on above: Result Comment: Spec imen processed and examined but unsatisfactory for evaluation of epithelial abnormality because of insufficient cellularity. Performed at: BA Performed By: #### C MP, LIPID #### [facility] [address] [place] [address] Dr. Heather Bowser T4, T3U, FTI LABCORPon 12-11 Free Thyroxine Index 2.7 Normal 1.2-4.9 [facility] Comment on above: Performed By: #### A 1C #### [facility] [address] [place] [address] Dr. Heather Bowser T3 Uptake 34 % Normal 24-39 [facility] Comment on above: Performed By: #### A 1C #### [facility] [address] [place] [address] Dr. Heather Bowser T4 [Mass/Vol] 7.8 ug/dL Normal 4.5-12.0 [facility] Comment on above: Performed By: #### A 1C #### [facility] [address] [place] [address] Dr. Heather Bowser LIVIER DIRECTon 12-10-2021 LIVIER Direct Negative Normal Negative [facility] Comment on above: Performed By: #### C MP, LIPID #### [facility] [address] [place] [address] Dr. Heather Bowser INSULINon 12-10-2021 Insulin 9.1 uIU/mL Normal 2.6-24.9 [facility] Comment on above: Performed By: #### A 1C #### [facility] [address] [place] [address] Dr. Heather oBwser ANTISTREPTOLYSIN O AB (ASO)o n 12-08-2021 Antistreptolysin O Ab 20.5 IU/mL Normal 0.0-200.0 [facility] Comment on above: Performed By: #### A 1C #### [facility] [address] [place] [address] Dr. Heather Bowser RHEUMATOID FACTORon 12-09-19 RA Latex Turbid. <10.0 Normal <14.0 [facility] Comment on above: Performed By: #### A 1C #### [facility] [address] [place] [address] Dr. Heather Bowser CBC AUTO DIFFon 12-07-2021 BASO # 0.0 103/ul Normal 0.0-0.1 [facility] Comment on above: Performed By: #### C MP, LIPID #### [facility] [address] [place] [address] Dr. Heather Bowser Basophils/100 WBC (Bld) 0.3 % Normal 0.2-2.0 [facility] Comment on above: Performed By: #### C MP, LIPID #### [facility] [address] [place] [address] Dr. Heather Bowser EO # 0.0 103/ul Normal 0.0-0.7 [facility] Comment on above: Performed By: #### C MP, LIPID #### [facility] [address] [place] [address] Dr. Heather Bowser Eosinophils/100 WBC (Bld) 0.2 % Critically low 0.9-7.0 [facility] Comment on above: Performed By: #### C MP, LIPID #### [facility] [address] [place] [address] Dr. Heather Bowser Erythrocyte distribution width (RBC) [Ratio] 12.9 % Normal 11.0-15.0 [facility] Comment on above: Performed By: #### C MP, LIPID #### [facility] [address] [place] [address] Dr. Heather Bowser Hematocrit (Bld) [Volume fraction] 43.0 % Normal 36.0-48.0 [facility] Comment on above: Performed By: #### C MP, LIPID #### [facility] [address] [place] [address] Dr. Heather Bowser Hemoglobin (Bld) [Mass/Vol] 14.2 g/dL Normal 12.0-16.0 [facility] Comment on above: Performed By: #### C MP, LIPID #### [facility] [address] [place] [address] Dr. Heather Bowser IG # 0.15 10e3/ul Critically high 0.00-0.03 [facility] Comment on above: Performed By: #### C MP, LIPID #### [facility] [address] [place] [address] Dr. Heather Bowser IG % 1.0 % Critically high 0.0-0.5 [facility] Comment on above: Performed By: #### C MP, LIPID #### [facility] [address] [place] [address] Dr. Heather Bowser LYMPH # 4.4 103/ul Critically high 1.2-3.8 [facility] Comment on above: Performed By: #### C MP, LIPID #### [facility] [address] [place] [address] Dr. Heather Bowser Lymphocytes/100 WBC (Bld) 30.6 % Normal 20.5-60.0 [facility] Comment on above: Performed By: #### C MP, LIPID #### [facility] [address] [place] [address] Dr. Heather Bowser MANUAL DIFF REQ NO Normal [facility] Comment on above: Performed By: #### C MP, LIPID #### [facility] [address] [address] [address] Heather Bowser MCH (RBC) [Entitic mass] 32.1 pg Normal 26.7-34.0 [facility] Comment on above: Performed By: #### C MP, LIPID #### [facility] [address] [place] [address] Dr. Heather Bowser MCHC (RBC) [Mass/Vol] 33.0 g/dL Normal 29.9-35.2 [facility] Comment on above: Performed By: #### C MP, LIPID #### [facility] [address] [place] [address] Dr. Heather Bowser MCV (RBC) [Entitic vol] 97.1 fL Normal 81.0-99.0 [facility] Comment on above: Performed By: #### C MP, LIPID #### [facility] [address] [place] [address] Dr. Heather Bowser MONO # 1.3 103/ul Critically high 0.3-0.8 [facility] Comment on above: Performed By: #### C MP, LIPID #### [facility] [address] [place] [address] Dr. Heather Bowser Monocytes/100 WBC (Bld) 8.7 % Normal 1.7-12.0 [facility] Comment on above: Performed By: #### C MP, LIPID #### [facility] [address] [place] [address] Dr. Heather Bowser NEUT # 8.6 103/ul Critically high 1.4-6.5 [facility] Comment on above: Performed By: #### C MP, LIPID #### [facility] [address] [place] [address] Dr. Heather Bowser Neutrophils/100 WBC (Bld) 59.2 % Normal 43.0-75.0 [facility] Comment on above: Performed By: #### C MP, LIPID #### [facility] [address] [place] [address] Dr. Heather Bowser Platelet mean volume (Bld) [Entitic vol] 9.6 fL Normal 9.5-13.5 [facility] Comment on above: Performed By: #### C MP, LIPID #### [facility] [address] [address] [address] Heather Bowser PLT 353 103/ul Normal 150-450 [facility] Comment on above: Performed By: #### C MP, LIPID #### [facility] [address] [address] [address] Heather Bowser RBC 4.43 106/ul Normal 4.20-5.40 [facility] Comment on above: Performed By: #### C MP, LIPID #### [facility] [address] [address] [address] Heather Bowser WBC 14.5 103/ul Critically high 4.0-11.0 [facility] Comment on above: Performed By: #### C MP, LIPID #### [facility] [address] [place] [address] Dr. Heather Bowser CRPon 12-07-2021 CRP [Mass/Vol] mg/L Normal <=1.0 [facility] Comment on above: Performed By: #### C MP, TSH, CRP, LIPID, URIC #### [facility] [address] [address] [address] Heather Bowser GLYCOHEMOGLOBIN A1Con 2021 ADA RECOMMENDATION SEE BELOW Normal [facility] Comment on above: Result Comment: ADA RECOMMENDED LIMIT 4.0 - 6.0 ADA THERAPEUTIC TARGET < 7.0 ACTION SUGGESTED > 7.0 Performed By: #### A 1C #### [facility] [address] [place] [address] Dr. Heather Bowser Glucose [Mass/Vol] 117 mg/dL Normal [facility] Comment on above: Performed By: #### A 1C #### [facility] [address] [place] [address] Dr. Heather Bowser HbA1c (Bld) [Mass fraction] 5.7 % Normal 4.5-6.2 [facility] Comment on above: Performed By: #### A 1C #### [facility] [address] [place] [address] Dr. Heather Bowser IRONon 12-07-2021 Iron [Mass/Vol] 153.0 ug/dL Normal 50.0-170.0 [facility] Comment on above: Performed By: #### I VINNIE #### [facility] [address] [address] [address] Heather Bowser LIPID PROFILEon 12-07-2021 CHOL-HDL RATIO NORM SEE BELOW Normal [facility] Comment on above: Result Comment: 3.3 - 4.4 LOW RISK 4.4 - 7.1 AVERAGE RISK 7.1 - 11.0 MODERATE RISK >11.0 HIGH RISK Performed By: #### C MP, TSH, CRP, LIPID, URIC #### [facility] [address] [address] [address] Heather Bowser Cholesterol [Mass/Vol] 240 mg/dL Critically high <=200 [facility] Comment on above: Performed By: #### C MP, TSH, CRP, LIPID, URIC #### [facility] [address] [address] [address] Heather Bowser Cholesterol in HDL [Mass/Vol] 57 mg/dL Normal 40-60 [facility] Comment on above: Performed By: #### C MP, TSH, CRP, LIPID, URIC #### [facility] [address] [address] [address] Heather Bowser Cholesterol in LDL [Mass/Vol] 157.2 mg/dL Normal [facility] Comment on above: Performed By: #### C MP, TSH, CRP, LIPID, URIC #### [facility] [address] [address] [address] Heather Bowser Cholesterol.total/Cho lesterol in HDL [Mass ratio] 4.2 {ratio} Normal [facility] Comment on above: Performed By: #### C MP, TSH, CRP, LIPID, URIC #### [facility] [address] [address] [address] Heather Bowser HDL NORMAL > or = 60 mg/dl - LOW CARDIOVASCULAR RISK <40 mg/dl - HIGH CARDIOVASCULAR RISK Normal [facility] Comment on above: Performed By: #### C MP, TSH, CRP, LIPID, URIC #### [facility] [address] [address] [address] Heather Bowser LDL CALC NORMAL SEE BELOW Normal [facility] Comment on above: Result Comment: <100 mg/dl OPTIMAL 100 - 129 mg/dl NEAR OR ABOVE OPTIMAL 130 - 159 mg/dl BORDERLINE HIGH 160 - 189 mg/dl HIGH >190 mg/dl VERY HIGH Performed By: #### C MP, TSH, CRP, LIPID, URIC #### [facility] [address] [address] [address] Heather Bowser Triglyceride [Mass/Vol] 129 mg/dL Normal <=150 [facility] Comment on above: Performed By: #### C MP, TSH, CRP, LIPID, URIC #### [facility] [address] [address] [address] Heather Bowser VLDL CALC 25.8 mg/dL Normal [facility] Comment on above: Performed By: #### C MP, TSH, CRP, LIPID, URIC #### [facility] [address] [address] [address] Heather Bowser PROF 14(COMP METB)on 022 Albumin [Mass/Vol] 3.6 g/dL Normal 3.4-5.0 [facility] Comment on above: Performed By: #### C MP, TSH, CRP, LIPID, URIC #### [facility] [address] [place] [address] Dr. Heather Bowser Albumin/Globulin [Mass ratio] 1.1 {ratio} Normal [facility] Comment on above: Performed By: #### C MP, TSH, CRP, LIPID, URIC #### [facility] [address] [place] [address] Dr. Heather Bowser ALP [Catalytic activity/Vol] 53 U/L Normal 46-116 [facility] Comment on above: Performed By: #### C MP, TSH, CRP, LIPID, URIC #### [facility] [address] [place] [address] Dr. Heather Bowser ALT [Catalytic activity/Vol] 20 U/L Normal 14-59 [facility] Comment on above: Performed By: #### C MP, TSH, CRP, LIPID, URIC #### [facility] [address] [address] [address] Heather Bowser Anion gap [Moles/Vol] 13.2 mmol/L Normal [facility] Comment on above: Performed By: #### C MP, TSH, CRP, LIPID, URIC #### [facility] [address] [address] [address] Heather Bowser AST [Catalytic activity/Vol] 10 U/L Critically low 15-37 [facility] Comment on above: Performed By: #### C MP, TSH, CRP, LIPID, URIC #### [facility] [address] [address] [address] Heather Bowser Bilirubin [Mass/Vol] 1.3 mg/dL Critically high 0.2-1.0 [facility] Comment on above: Performed By: #### C MP, TSH, CRP, LIPID, URIC #### [facility] [address] [place] [address] Dr. Heather Bowser Calcium [Mass/Vol] 8.6 mg/dL Normal 8.5-10.1 [facility] Comment on above: Performed By: #### C MP, TSH, CRP, LIPID, URIC #### [facility] [address] [place] [address] Dr. Heather Bowser Chloride [Moles/Vol] 103 mmol/L Normal 98-107 [facility] Comment on above: Performed By: #### C MP, TSH, CRP, LIPID, URIC #### [facility] [address] [place] [address] Dr. Heather Bowser CO2 [Moles/Vol] 28.2 mmol/L Normal 21.0-32.0 [facility] Comment on above: Performed By: #### C MP, TSH, CRP, LIPID, URIC #### [facility] [address] [place] [address] Dr. Heather Bowser Creatinine [Mass/Vol] 0.77 mg/dL Normal 0.55-1.02 [facility] Comment on above: Performed By: #### C MP, TSH, CRP, LIPID, URIC #### [facility] [address] [address] [address] Heather Bowser EGFR-AF ETHIOPIAN >60 Normal >=60 [facility] Comment on above: Performed By: #### C MP, TSH, CRP, LIPID, URIC #### [facility] [address] [address] [address] Heather Bowser EGFR-NON AF ETHIOPIAN >60 Normal >=60 [facility] Comment on above: Performed By: #### C MP, TSH, CRP, LIPID, URIC #### [facility] [address] [place] [address] Dr. Heather Bowser Globulin (S) [Mass/Vol] 3.4 g/dL Normal [facility] Comment on above: Performed By: #### C MP, TSH, CRP, LIPID, URIC #### [facility] [address] [place] [address] Dr. Heather Bowser Glucose [Mass/Vol] 83 mg/dL Normal 74-106 [facility] Comment on above: Performed By: #### C MP, TSH, CRP, LIPID, URIC #### [facility] [address] [address] [address] Heather Bowser Potassium [Moles/Vol] 3.4 mmol/L Critically low 3.5-5.1 [facility] Comment on above: Performed By: #### C MP, TSH, CRP, LIPID, URIC #### [facility] [address] [place] [address] Dr. Heather Bowser Protein [Mass/Vol] 7.0 g/dL Normal 6.4-8.2 [facility] Comment on above: Performed By: #### C MP, TSH, CRP, LIPID, URIC #### [facility] [address] [address] [address] Heather Bowser Sodium [Moles/Vol] 141 mmol/L Normal 136-145 [facility] Comment on above: Performed By: #### C MP, TSH, CRP, LIPID, URIC #### [facility] [address] [place] [address] Dr. Heather Bowser Urea nitrogen [Mass/Vol] 19.0 mg/dL Critically high 7.0-18.0 [facility] Comment on above: Performed By: #### C MP, TSH, CRP, LIPID, URIC #### [facility] [address] [place] [address] Dr. Heather Bowser Urea nitrogen/Creatinine [Mass ratio] 24.7 mg/mg Normal [facility] Comment on above: Performed By: #### C MP, TSH, CRP, LIPID, URIC #### [facility] [address] [place] [address] Dr. Heather Bowser TSHon 12-07-2021 TSH 1.776 uIU/mL Normal 0.358-3.740 [facility] Comment on above: Performed By: #### C MP, TSH, CRP, LIPID, URIC #### [facility] [address] [place] [address] Dr. Heather Bowser URIC ACID SERUMon 12-07-2021 Urate [Mass/Vol] 4.3 mg/dL Normal 2.6-6.0 [facility] Comment on above: Performed By: #### C MP, TSH, CRP, LIPID, URIC #### [facility] [address] [place] [address] Dr. Heather Bowser SYMPTOMATIC COVID-19 ANTIGEN on 10-02-2021 EUA Statement SEE BELOW Normal [facility] Comment on above: Result Comment: This test [...] Performed By: #### C MP, LIPID #### [facility] [address] [place], [place] [id number] Dr. Heather Bowser SARS-CoV-2 (COVID-19) RNA MARY+probe Ql (Unsp spec) Positive Critically abnormal NEGATIVE [facility] Comment on above: Performed By: #### C MP, LIPID #### [facility] [address] [address] [address] Heather Bowser GTT 2 HRon 05-25-2021 Glucose [Mass/Vol] 88 mg/dL Normal 74-106 [facility] Comment on above: Performed By: #### G TT2 #### [facility] [address] [address] [address] Heather Bowser Glucose [Mass/Vol] 152 mg/dL Normal [facility] Comment on above: Performed By: #### G TT2 #### [facility] [address] [address] [address] Heather Bowser Glucose [Mass/Vol] 112 mg/dL Normal [facility] Comment on above: Performed By: #### G TT2 #### [facility] [address] [address] [address] Heather Bowser Encounters Encounter Date Encounter Type Care Provider Facility Start: 12-14-2023 End: 12-14-2023 ambulatory HARSHAL SNEED Not Available Start: 12-05-2023 End: 12-05-2023 Emergency department patient visit SHELLEY TOURE [facility] Start: 05-17-2022 End: 05-18-[address] SHELLEY TOURE Facility:[facility] Start: 02-14-[address] SHELLEY TOURE Facility :[facility] Start: 02-08-2022 End: 02-09-[address] SHELLEY TOURE Facility:[facility] Start: 01-29-2022 End: 01-29-2022 ambulatory SEVEN CHERRY Facility:[facility] Start: 01-15-[address] SHELLEY TOURE Facility :[facility] Start: 01-14-2022 End: 01-14-[address] SHELLEY TOURE Facility:[facility] Start: 12-07-2021 End: 12-08-[address] SHELLEY TOURE Facility:[facility] Start: 12-06-2021 End: 12-07-[address] SHELLEY TOURE Facility:[facility] Start: 10-02-2021 End: 10-02-[address] SHELLEY TOURE Facility:[facility] Start: 05-25-2021 End: 05-26-[address] SHELLEY TOURE Facility:[facility] Payers Date Payer Category Payer Unknown [id number] 2.16.84 [id number] 1984 Unknown [id number] 2.16.84 [id number] 1984 Unknown [id number] 2.16.84 [id number] 1984 Unknown [id number] 2.16.84 [id number] 1984 Unknown [id number] 2.16.84 [id number] 1984 Unknown [id number] 2.16.84 [id number] 1984 Unknown [id number] 2.16.84 [id number] 1984 Unknown [id number] 2.16.84 [id number] 1984 Unknown [id number] 2.16.84 [id number] 1984 Unknown [id number] 2.16.84 [id number] 1984 Unknown [id number] 2.16.84 [id number] 1984 Unknown [id number] 2.16.8 [id number] 1984 Unknown [id number] 2.16.84 [id number] 1959 Self-pay [id number] 1959 Unknown [id number] Clinical Note 11-06-2022 Note Date & Type Note Facility 02-09-2022 Note PROCEDURE: XR SKULL MIN 4 VIEW COMPARISON: None. HISTORY: Sinusitis FINDINGS: BONES:No fracture, acute abnormality, or significant arthropathy. SOFT TISSUES:Negative. No visible soft tissue swelling. EFFUSION:None visible. OTHER: Negative. IMPRESSION: No acute abnormality Electronically authenticated by: SARAN VELASCO Date: 2022-02-09 08:40 [facility] Summary Purpose Family History No Family History Records FoundNo Family History Records FoundNo Family History Records Found Advance Directives No Advanced Directives Records FoundNo Advanced Directives Records FoundNo Advanced Directives Records Found Additional Source Comments INFORMATION SOURCE (unrecogn ized section and content) DATE CREATED AUTHOR 05/24/2022 [facility] DATE CREATED AUTHOR AUTHOR'S ORGANIZ ATION 12/05/2023 [facility] DATE CREATED AUTHOR AUTHOR'S ORGANIZ ATION 12/15/2023 [facility] FOR RECORDS PERTAINING TO PATIENTS WHO ARE [...] BE BASED ON THE PRIMARY CLINICAL RECORDS. [facility] [employer] [facility]. provides no warranty or guarantee of the accuracy or completeness of information in this document.
== END 2023-12-19 17:14 | disposition home or self-care (01) ==
PROVIDERS: Emergency Provider Emergency Medicine Emergency Medical Services; PCP Family Medicine
DX: L27.0 Generalized skin eruption due to drugs and medicaments taken internally (principal); T37.3X5A Adverse effect of other antiprotozoal drugs, initial encounter
CPT/HCPCS: 99283

== ENCOUNTER 2023-12-22 19:00 | Outpatient (OUT) | payer MEDICAID, SELFPAY ==
--- NOTE | 2023-12-22 19:02 | US_ITS ---
The [address] [address] Patient Name: JUSTA SALGUERO MRN: [id number] date: 1985 Sex: F Assigned Patient Location: US Current Patient Location: Accession/Order Number: [id number] Exam Date: 12/22/2023 19:06 Report Date: 12/24/2023 08:02 At the request of: HARSHAL SNEED Procedure: US pelvis w/ transvaginal EXAM: US pelvis w/ transvaginal HISTORY: . MENORRHAGIA WITH REGULAR CYCLE N92.0 . COMPARISON: None. TECHNIQUE: Transabdominal and transvaginal scanning was performed FINDINGS: Scanning of the pelvis demonstrates an anteverted uterus measuring 9.6 x 5.2 x 6.1 cm. Endometrial complex measures 10 mm. Right ovary measures 3 x 1.3 x 2.1 cm. Color-flow is noted. No masses are noted. Left ovary measures 4.5 x 2.6 x 2 cm. Color-flow is noted. There is a 1.5 x 0.8 cm dominant follicle/simple cyst in the left ovary. No fluid is noted in the cul-de-sac. US/US pelvis w/ transvaginal IMPRESSION: 1. Normal-appearing anteverted uterus and normal endometrial complex. 2. Normal right ovary. 3. 1.5 x 0.8 cm dominant follicle/simple cyst in the left ovary. Electronically authenticated by: SARAN SCHERER Date: 12/24/2023 08:02
--- OUTSIDE RECORDS SUMMARY | 2023-12-22 19:03 | XMS_ITS | CCD ---
Author Organization [facility] Care Team Providers Care Manager Card Name Role Phone TEJAL, DR ROSA Primary Care Unavailable NEDRA, DR CAPUTO Attending Unavailable NEDRA, DR CAPTUO Admitting Unavailable HOY, DR ROSA Consulting Unavailable [...] Anion gap [Moles/Vol] 6 mmol/L Normal 5-15 [facility] Comment on above: Performed By: #### C BCA, BMP #### [facility] ([id number]) [address] [place] [address] 11954 Calcium [Mass/Vol] 8.9 mg/dL Normal 8.5-10.5 [facility] Comment on above: Performed By: #### C BCA, BMP #### [facility] ([id number]) [address] [place] [address] 97635 Chloride [Moles/Vol] 105 mmol/L Normal 98-109 [facility] Comment on above: Performed By: #### C BCA, BMP #### [facility] ([id number]) [address] [place] [address] 69901 CO2 [Moles/Vol] 24 mmol/L Normal 22-32 [facility] Comment on above: Performed By: #### C BCA, BMP #### [facility] ([id number]) [address] [place] [address] 65866 Creatinine [Mass/Vol] 0.60 mg/dL Normal 0.40-1.00 [facility] Comment on above: Result Comment: METH OD TRACEABLE TO IDMS STANDARD Performed By: #### C BCA, BMP #### [facility] ([id number]) [address] [place] [address] 36107 eGFR (CKD-EPI) NON-RACE DEPENDENT >90 Normal >59 [facility] Comment on above: Result Comment: Reported eGFR is based on the CKD-EPI 2020 equation that does not use a race coefficient. Performed By: #### C SHAHLA, BMP #### [facility] ([id number]) [address] [place] [address] 42696 Glucose [Mass/Vol] 96 mg/dL Normal 65-99 [facility] Comment on above: Performed By: #### C SHAHLA, BMP #### [facility] ([id number]) [address] [place] [address] 37394 Potassium [Moles/Vol] 3.9 mmol/L Normal 3.5-5.0 [facility] Comment on above: Performed By: #### C SHAHLA, BMP #### [facility] ([id number]) [address] [place] [address] 67037 Sodium [Moles/Vol] 135 mmol/L Normal 134-146 [facility] Comment on above: Performed By: #### C BCA, BMP #### [facility] ([id number]) [address] [place] [address] 94894 Urea nitrogen [Mass/Vol] 15 mg/dL Normal 5-23 [facility] Comment on above: Performed By: #### C BCA, BMP #### [facility] ([id number]) [address] [place] [address] [phone] CBC AND AUTO DIFFon 12-05-19 24 ABSOLUTE BASOPHIL 0.1 X10E9/L Normal 0.0-0.2 [facility] Comment on above: Performed By: #### C BCA, BMP #### [facility] ([id number]) [address] [place] [address] 45968 ABSOLUTE NEUTROPHIL 9.9 X10E9/L High 1.5-6.6 [facility] Comment on above: Performed By: #### C SHAHLA, BMP #### [facility] ([id number]) [address] [place] [address] 39200 Basophils/100 WBC (Bld) 0.5 % Normal [facility] Comment on above: Performed By: #### C SHAHLA, BMP #### [facility] ([id number]) [address] [place] [address] 14106 Eosinophils (Bld) [#/Vol] 0.1 10*3/uL Normal 0.0-0.4 [facility] Comment on above: Performed By: #### C SHAHLA, BMP #### [facility] ([id number]) [address] [place] [address] 06700 Eosinophils/100 WBC (Bld) 0.8 % Normal [facility] Comment on above: Performed By: #### Shamika GALE, BMP #### [facility] ([id number]) [address] [place] [address] 51673 Erythrocyte distribution width (RBC) [Ratio] 13.2 % Normal 11.5-15.0 [facility] Comment on above: Performed By: #### C SHAHLA, BMP #### [facility] ([id number]) [address] [place] [address] 47219 Hematocrit (Bld) [Volume fraction] 42.0 % Normal 35-47 [facility] Comment on above: Performed By: #### C SHAHLA, BMP #### [facility] ([id number]) [address] [place] [address] 83624 Hemoglobin (Bld) [Mass/Vol] 14.1 g/dL Normal 11.7-15.5 [facility] Comment on above: Performed By: #### Shamika GALE, BMP #### [facility] ([id number]) [address] [place] [address] 55150 Lymphocytes (Bld) [#/Vol] 2.0 10*3/uL Normal 1.0-3.5 [facility] Comment on above: Performed By: #### C BCA, BMP #### [facility] ([id number]) [address] [place] [address] 71453 Lymphocytes/100 WBC (Bld) 15.4 % Normal [facility] Comment on above: Performed By: #### C BCA, BMP #### [facility] ([id number]) [address] [place] [address] 86768 MCH (RBC) [Entitic mass] 32.3 pg Normal 27-34 [facility] Comment on above: Performed By: #### C BCA, BMP #### [facility] ([id number]) [address] [place] [address] 44734 MCHC (RBC) [Mass/Vol] 33.5 g/dL Normal 32-36 [facility] Comment on above: Performed By: #### C BCA, BMP #### [facility] ([id number]) [address] [place] [address] 13176 MCV (RBC) [Entitic vol] 97 fL Normal 80-100 [facility] Comment on above: Performed By: #### C BCA, BMP #### [facility] ([id number]) [address] [place] [address] 32616 Monocytes (Bld) [#/Vol] 0.9 10*3/uL Normal 0-0.9 [facility] Comment on above: Performed By: #### C BCA, BMP #### [facility] ([id number]) [address] [place] [address] 24621 Monocytes/100 WBC (Bld) 6.6 % Normal [facility] Comment on above: Performed By: #### C BCA, BMP #### [facility] ([id number]) [address] [place] [address] 02169 Neutrophils/100 WBC (Bld) 76.7 % Normal [facility] Comment on above: Performed By: #### C BCA, BMP #### [facility] ([id number]) [address] [place] [address] 05567 Platelet mean volume (Bld) [Entitic vol] 8.6 fL Normal 7-12 [facility] Comment on above: Performed By: #### C SHAHLA, BMP #### [facility] ([id number]) [address] [place] [address] 35960 Platelets (Bld) [#/Vol] 290 10*3/uL Normal 150-450 [facility] Comment on above: Performed By: #### C SHAHLA, BMP #### [facility] ([id number]) [address] [place] [address] 41716 RBC COUNT 4.35 X10E12/L Normal 3.80-5.20 [facility] Comment on above: Performed By: #### C SHAHLA, BMP #### [facility] ([id number]) [address] [place] [address] 69665 WBC (Bld) [#/Vol] 12.9 10*3/uL High 4.0-11.0 [facility] Comment on above: Performed By: #### C SHAHLA, BMP #### [facility] ([id number]) [address] [place] [address] [phone] LIPID PROFILEon 05-17-2022 CHOL-HDL RATIO NORM SEE BELOW Normal [facility] Comment on above: Result Comment: 3.3 - 4.4 LOW RISK 4.4 - 7.1 AVERAGE RISK 7.1 - 11.0 MODERATE RISK >11.0 HIGH RISK Performed By: #### C MP, LIPID #### [facility] [address] [place] [address] Dr. Heather Bowser Cholesterol [Mass/Vol] 209 mg/dL Critically high <=200 [facility] Comment on above: Performed By: #### C MP, LIPID #### [facility] [address] [address] [address] Heather Bowser Cholesterol in HDL [Mass/Vol] 63 mg/dL Critically high 40-60 [facility] Comment on above: Performed By: #### C MP, LIPID #### [facility] [address] [address] [address] Heather Bowser Cholesterol in LDL [Mass/Vol] 123.2 mg/dL Normal [facility] Comment on above: Performed By: #### C MP, LIPID #### [facility] [address] [place] [address] Dr. Heather Bowser Cholesterol.total/Cho lesterol in HDL [Mass ratio] 3.3 {ratio} Normal [facility] Comment on above: Performed By: #### C MP, LIPID #### [facility] [address] [place] [address] Dr. Heather Bowser HDL NORMAL > or = 60 mg/dl - LOW CARDIOVASCULAR RISK <40 mg/dl - HIGH CARDIOVASCULAR RISK Normal [facility] Comment on above: Performed By: #### C MP, LIPID #### [facility] [address] [place] [address] Dr. Heather Bowser LDL CALC NORMAL SEE BELOW Normal [facility] Comment on above: Result Comment: <100 mg/dl OPTIMAL 100 - 129 mg/dl NEAR OR ABOVE OPTIMAL 130 - 159 mg/dl BORDERLINE HIGH 160 - 189 mg/dl HIGH >190 mg/dl VERY HIGH Performed By: #### C MP, LIPID #### [facility] [address] [address] [address] Heather Bowser Triglyceride [Mass/Vol] 114 mg/dL Normal <=150 [facility] Comment on above: Performed By: #### C MP, LIPID #### [facility] [address] [address] [address] Heather Bowser VLDL CALC 22.8 mg/dL Normal [facility] Comment on above: Performed By: #### C MP, LIPID #### [facility] [address] [address] [address] Heather Bowser PROF 14(COMP METB)on 023 Albumin [Mass/Vol] 4.0 g/dL Normal 3.4-5.0 [facility] Comment on above: Performed By: #### C MP, LIPID #### [facility] [address] [address] [address] Heather Bowser Albumin/Globulin [Mass ratio] 0.9 {ratio} Normal [facility] Comment on above: Performed By: #### C MP, LIPID #### [facility] [address] [address] [address] Heather Bowser ALP [Catalytic activity/Vol] 65 U/L Normal 46-116 [facility] Comment on above: Performed By: #### C MP, LIPID #### [facility] [address] [place] [address] Dr. Heather Bowser ALT [Catalytic activity/Vol] 17 U/L Normal 14-59 [facility] Comment on above: Performed By: #### C MP, LIPID #### [facility] [address] [address] [address] Heather Bowser Anion gap [Moles/Vol] 12.7 mmol/L Normal [facility] Comment on above: Performed By: #### C MP, LIPID #### [facility] [address] [address] [address] Heather Bowser AST [Catalytic activity/Vol] 20 U/L Normal 15-37 [facility] Comment on above: Performed By: #### C MP, LIPID #### [facility] [address] [address] [address] Heather Bowser Bilirubin [Mass/Vol] 1.0 mg/dL Normal 0.2-1.0 [facility] Comment on above: Performed By: #### C MP, LIPID #### [facility] [address] [address] [address] Heather Bowser Calcium [Mass/Vol] 9.4 mg/dL Normal 8.5-10.1 [facility] Comment on above: Performed By: #### C MP, LIPID #### [facility] [address] [address] [address] Heather Bowser Chloride [Moles/Vol] 104 mmol/L Normal 98-107 [facility] Comment on above: Performed By: #### C MP, LIPID #### [facility] [address] [address] [address] Heather Bowser CO2 [Moles/Vol] 28.3 mmol/L Normal 21.0-32.0 [facility] Comment on above: Performed By: #### C MP, LIPID #### [facility] [address] [address] [address] Heather Bowser Creatinine [Mass/Vol] 0.60 mg/dL Normal 0.55-1.02 [facility] Comment on above: Performed By: #### C MP, LIPID #### [facility] [address] [address] [address] Heather Bowser EGFR-AF BELARUSIAN >60 Normal >=60 [facility] Comment on above: Performed By: #### C MP, LIPID #### [facility] [address] [address] [address] Heather Bowser EGFR-NON AF BELARUSIAN >60 Normal >=60 [facility] Comment on above: Performed By: #### C MP, LIPID #### [facility] [address] [address] [address] Heather Bowser Globulin (S) [Mass/Vol] 4.3 g/dL Normal [facility] Comment on above: Performed By: #### C MP, LIPID #### [facility] [address] [address] [address] Heather Bowser Glucose [Mass/Vol] 88 mg/dL Normal 74-106 [facility] Comment on above: Performed By: #### C MP, LIPID #### [facility] [address] [address] [address] Heather Bowser Potassium [Moles/Vol] 4.0 mmol/L Normal 3.5-5.1 [facility] Comment on above: Performed By: #### C MP, LIPID #### [facility] [address] [place] [address] Dr. Heather Bowser Protein [Mass/Vol] 8.3 g/dL Critically high 6.4-8.2 [facility] Comment on above: Performed By: #### C MP, LIPID #### [facility] [address] [place] [address] Dr. Heather Bowser Sodium [Moles/Vol] 141 mmol/L Normal 136-145 [facility] Comment on above: Performed By: #### C MP, LIPID #### [facility] [address] [place] [address] Dr. Heather Bowser Urea nitrogen [Mass/Vol] 12.0 mg/dL Normal 7.0-18.0 [facility] Comment on above: Performed By: #### C MP, LIPID #### [facility] [address] [place] [address] Dr. Heather Bowser Urea nitrogen/Creatinine [Mass ratio] 20.0 mg/mg Normal [facility] Comment on above: Performed By: #### C MP, LIPID #### [facility] [address] [place] [address] Dr. Heather Bowser XR SINUS WATERon 02-09-2022 XR SINUS WATER EXAMINATION: XR SINUS WATER HISTORY: Sinusitis COMPARISON: No relevant comparison available. FINDINGS: MAXILLARY: No mucosal thickening or fluid level. ETHMOID: No mucosal thickening or fluid level. OTHER: Negative. IMPRESSION: Clear paranasal sinuses Electronically authenticated by: SARAN VELASCO Date: 2022-02-09 08:40 Normal [facility] CBC AUTO DIFFon 02-08-2022 BASO # 0.1 103/ul Normal 0.0-0.1 [facility] Comment on above: Performed By: #### A 1C #### [facility] [address] [place] [address] Dr. Heather Bowser Basophils/100 WBC (Bld) 0.6 % Normal 0.2-2.0 [facility] Comment on above: Performed By: #### A 1C #### [facility] [address] [place] [address] Dr. Heather Bowser EO # 0.1 103/ul Normal 0.0-0.7 [facility] Comment on above: Performed By: #### A 1C #### [facility] [address] [place] [address] Dr. Heather Bowser Eosinophils/100 WBC (Bld) 1.4 % Normal 0.9-7.0 [facility] Comment on above: Performed By: #### A 1C #### [facility] [address] [place] [address] Dr. Heather Bowser Erythrocyte distribution width (RBC) [Ratio] 12.9 % Normal 11.0-15.0 [facility] Comment on above: Performed By: #### A 1C #### [facility] [address] [place] [address] Dr. Heather Bowser Hematocrit (Bld) [Volume fraction] 40.9 % Normal 36.0-48.0 [facility] Comment on above: Performed By: #### A 1C #### [facility] [address] [place] [address] Dr. Heather Bowser Hemoglobin (Bld) [Mass/Vol] 13.7 g/dL Normal 12.0-16.0 [facility] Comment on above: Performed By: #### A 1C #### [facility] [address] [place] [address] Dr. Heather Bowser IG # 0.02 10e3/ul Normal 0.00-0.03 [facility] Comment on above: Performed By: #### A 1C #### [facility] [address] [place] [address] Dr. Heather Bowser IG % 0.2 % Normal 0.0-0.5 [facility] Comment on above: Performed By: #### A 1C #### [facility] [address] [place] [address] Dr. Heather Bowser LYMPH # 2.3 103/ul Normal 1.2-3.8 [facility] Comment on above: Performed By: #### A 1C #### [facility] [address] [place] [address] Dr. Heather Bowser Lymphocytes/100 WBC (Bld) 27.6 % Normal 20.5-60.0 [facility] Comment on above: Performed By: #### A 1C #### [facility] [address] [place] [address] Dr. Heather Bowser MANUAL DIFF REQ NO Normal [facility] Comment on above: Performed By: #### A 1C #### [facility] [address] [place] [address] Dr. Heather Bowser MCH (RBC) [Entitic mass] 32.4 pg Normal 26.7-34.0 [facility] Comment on above: Performed By: #### A 1C #### [facility] [address] [place] [address] Dr. Heather Bowser MCHC (RBC) [Mass/Vol] 33.5 g/dL Normal 29.9-35.2 [facility] Comment on above: Performed By: #### A 1C #### [facility] [address] [place] [address] Dr. Heather Bowser MCV (RBC) [Entitic vol] 96.7 fL Normal 81.0-99.0 [facility] Comment on above: Performed By: #### A 1C #### [facility] [address] [place] [address] Dr. Heather Bowser MONO # 0.5 103/ul Normal 0.3-0.8 [facility] Comment on above: Performed By: #### A 1C #### [facility] [address] [place] [address] Dr. Heather Bowser Monocytes/100 WBC (Bld) 6.3 % Normal 1.7-12.0 [facility] Comment on above: Performed By: #### A 1C #### [facility] [address] [place] [address] Dr. Heather Bowser NEUT # 5.4 103/ul Normal 1.4-6.5 [facility] Comment on above: Performed By: #### A 1C #### [facility] [address] [place] [address] Dr. Heather Bowser Neutrophils/100 WBC (Bld) 63.9 % Normal 43.0-75.0 [facility] Comment on above: Performed By: #### A 1C #### [facility] [address] [address] [address] Heather Bowser Platelet mean volume (Bld) [Entitic vol] 10.3 fL Normal 9.5-13.5 [facility] Comment on above: Performed By: #### A 1C #### [facility] [address] [address] [address] Heather Bowser PLT 306 103/ul Normal 150-450 [facility] Comment on above: Performed By: #### A 1C #### [facility] [address] [place] [address] Dr. Heather Bowser RBC 4.23 106/ul Normal 4.20-5.40 [facility] Comment on above: Performed By: #### A 1C #### [facility] [address] [place] [address] Dr. Heather Bowesr WBC 8.4 103/ul Normal 4.0-11.0 [facility] Comment on above: Performed By: #### A 1C #### [facility] [address] [place] [address] Dr. Heather Bowser GLYCOHEMOGLOBIN A1Con 2021 ADA RECOMMENDATION SEE BELOW Normal [facility] Comment on above: Result Comment: ADA RECOMMENDED LIMIT 4.0 - 6.0 ADA THERAPEUTIC TARGET < 7.0 ACTION SUGGESTED > 7.0 Performed By: #### C MP, LIPID #### [facility] [address] [place] [address] Dr. Heather Bowser Glucose [Mass/Vol] 108 mg/dL Normal [facility] Comment on above: Performed By: #### C MP, LIPID #### [facility] [address] [place] [address] Dr. Heather Bowser HbA1c (Bld) [Mass fraction] 5.4 % Normal 4.5-6.2 [facility] Comment on above: Performed By: #### C MP, LIPID #### [facility] [address] [place] [address] Dr. Heather Bowser PREG QUANT HCGon 02-08-2022 HCG QUANT <1 Normal [facility] Comment on above: Performed By: #### C MP, LIPID #### [facility] [address] [place] [address] Dr. Heather Bowser HCG RANGE SEE BELOW Normal [facility] Comment on above: Result Comment: 5-50 0.2-1 WEEK 50-500 1-2 WEEKS 100-5,000 2-3 WEEKS 500-10,000 3-4 WEEKS 1,000-50,000 4-5 WEEKS 10,000-100,000 5-6 WEEKS 15,000-200,000 6-8 WEEKS 10,000-100,000 2-3 MONTHS Performed By: #### C MP, LIPID #### [facility] [address] [place] [address] Dr. Heather Bowser PROTIMEon 02-08-2022 INR Coag (PPP) [Relative time] 0.95 {INR} Normal [facility] Comment on above: Performed By: #### C MP, LIPID #### [facility] [address] [place] [address] Dr. Heather Bowser INR GUIDELINES SEE BELOW Normal [facility] Comment on above: Result Comment: AUGUSTUS RED INR: 2.0 - 3.0 CONDITIONS NOT LISTED BELOW 2.5 - 3.5 FOR PROSTHETIC HEART VALVE REPLACEMENT 2.5 - 3.5 RECURRENT THROMBOSIS Performed By: #### C MP, LIPID #### [facility] [address] [place] [address] Dr. Heather Bowser PT Coag (PPP) [Time] 10.3 s Normal 9.0-11.6 [facility] Comment on above: Performed By: #### C MP, LIPID #### [facility] [address] [place] [address] Dr. Heather Bowser PTTon 02-08-2022 aPTT Coag (Bld) [Time] 26.8 s Normal 22.3-36.2 [facility] Comment on above: Performed By: #### C MP, LIPID #### [facility] [address] [place] [address] Dr. Heather Bowser TSHon 02-08-2022 TSH 1.356 uIU/mL Normal 0.358-3.740 [facility] Comment on above: Performed By: #### C MP, LIPID #### [facility] [address] [address] [address] Heather Bowser PAP ACOG PANEL 2: 30 to 65on 01-20-2022 . . Normal [facility] Comment on above: Result Comment: Perf ormed at: BA Performed By: #### C MP, LIPID #### [facility] [address] [address] [address] Heather Bowser Age Gdln ACOG Testing 30-65 Normal [facility] Comment on above: Performed By: #### C MP, LIPID #### [facility] [address] [place] [address] Dr. Heather Bowser DIAGNOSIS: Comment Normal [facility] Comment on above: Result Comment: UNSA TISFACTORY FOR EVALUATION. THIS SPECIMEN WAS RESCREENED PART OF OUR FINANCIAL AID DIRECTOR PROGRAM. Performed at: BA Performed By: #### C MP, LIPID #### [facility] [address] [place] [address] Dr. Heather Bowser HPV Aptima Negative Normal Negative [facility] Comment on above: Result Comment: This nucleic acid amplification test detects fourteen high-risk HPV types (16,18,31,33,35,39,45,51,52,56,58,59,66,68) without differentiation. Performed at: =G Performed By: #### C MP, LIPID #### [facility] [address] [place] [address] Dr. Heather Bowser Methodology: Comment Normal [facility] Comment on above: Result Comment: This liquid based ThinPrep(R) pap test was screened with the use of an image guided system. Performed at: WB Performed By: #### C MP, LIPID #### [facility] [address] [place] [address] Dr. Heather Bowser Note: Comment Normal [facility] Comment on above: Result Comment: The [...] Performed By: #### C MP, LIPID #### [facility] [address] [place] [address] Dr. Heather Bowser Performed by: Comment Normal [facility] Comment on above: Result Comment: Mark Kline, Client Services Coordinator (ASCP) Performed at: BA Performed By: #### C MP, LIPID #### [facility] [address] [place] [address] Dr. Heather Bowser QC reviewed by: Comment Normal [facility] Comment on above: Result Comment: Yin Infante, Client Services Coordinator (ASCP) Performed at: BA Performed By: #### C MP, LIPID #### [facility] [address] [place] [address] Dr. Heather Bowser Specimen adequacy: Comment Normal [facility] Comment on above: Result Comment: Spec imen processed and examined but unsatisfactory for evaluation of epithelial abnormality because of insufficient cellularity. Performed at: BA Performed By: #### C MP, LIPID #### [facility] [address] [place] [address] Dr. Heather Bowser T4, T3U, FTI LABCORPon 12-11 Free Thyroxine Index 2.7 Normal 1.2-4.9 [facility] Comment on above: Performed By: #### A 1C #### [facility] [address] [place] [address] Dr. Heather Bowser T3 Uptake 34 % Normal 24-39 [facility] Comment on above: Performed By: #### A 1C #### [facility] [address] [place] [address] Dr. Heather Bowser T4 [Mass/Vol] 7.8 ug/dL Normal 4.5-12.0 [facility] Comment on above: Performed By: #### A 1C #### [facility] [address] [place] [address] Dr. Heather Bowser LIVIER DIRECTon 12-10-2021 LIVIER Direct Negative Normal Negative [facility] Comment on above: Performed By: #### C MP, LIPID #### [facility] [address] [place] [address] Dr. Heather Bowser INSULINon 12-10-2021 Insulin 9.1 uIU/mL Normal 2.6-24.9 [facility] Comment on above: Performed By: #### A 1C #### [facility] [address] [place] [address] Dr. Heather Bowser ANTISTREPTOLYSIN O AB (ASO)o n 12-08-2021 Antistreptolysin O Ab 20.5 IU/mL Normal 0.0-200.0 [facility] Comment on above: Performed By: #### A 1C #### [facility] [address] [place] [address] Dr. Heather Bowser RHEUMATOID FACTORon 12-09-19 RA Latex Turbid. <10.0 Normal <14.0 [facility] Comment on above: Performed By: #### A 1C #### [facility] [address] [place] [address] Dr. Heather Bowser CBC AUTO DIFFon 12-07-2021 BASO # 0.0 103/ul Normal 0.0-0.1 [facility] Comment on above: Performed By: #### C MP, LIPID #### [facility] [address] [place] [address] Dr. Heather Bowser Basophils/100 WBC (Bld) 0.3 % Normal 0.2-2.0 [facility] Comment on above: Performed By: #### C MP, LIPID #### [facility] [address] [place] [address] Dr. Heather Bowser EO # 0.0 103/ul Normal 0.0-0.7 [facility] Comment on above: Performed By: #### C MP, LIPID #### [facility] [address] [place] [address] Dr. Heather Bowser Eosinophils/100 WBC (Bld) 0.2 % Critically low 0.9-7.0 [facility] Comment on above: Performed By: #### C MP, LIPID #### [facility] [address] [place] [address] Dr. Heather Bowser Erythrocyte distribution width (RBC) [Ratio] 12.9 % Normal 11.0-15.0 [facility] Comment on above: Performed By: #### C MP, LIPID #### [facility] [address] [place] [address] Dr. Heather Bowser Hematocrit (Bld) [Volume fraction] 43.0 % Normal 36.0-48.0 [facility] Comment on above: Performed By: #### C MP, LIPID #### [facility] [address] [place] [address] Dr. Heather Bowser Hemoglobin (Bld) [Mass/Vol] 14.2 g/dL Normal 12.0-16.0 [facility] Comment on above: Performed By: #### C MP, LIPID #### [facility] [address] [place] [address] Dr. Heather Bowser IG # 0.15 10e3/ul Critically high 0.00-0.03 [facility] Comment on above: Performed By: #### C MP, LIPID #### [facility] [address] [place] [address] Dr. Heather Bowser IG % 1.0 % Critically high 0.0-0.5 [facility] Comment on above: Performed By: #### C MP, LIPID #### [facility] [address] [place] [address] Dr. Heather Bowser LYMPH # 4.4 103/ul Critically high 1.2-3.8 [facility] Comment on above: Performed By: #### C MP, LIPID #### [facility] [address] [place] [address] Dr. Heather Bowser Lymphocytes/100 WBC (Bld) 30.6 % Normal 20.5-60.0 [facility] Comment on above: Performed By: #### C MP, LIPID #### [facility] [address] [place] [address] Dr. Heather Bowser MANUAL DIFF REQ NO Normal [facility] Comment on above: Performed By: #### C MP, LIPID #### [facility] [address] [address] [address] Heather Bowser MCH (RBC) [Entitic mass] 32.1 pg Normal 26.7-34.0 [facility] Comment on above: Performed By: #### C MP, LIPID #### [facility] [address] [place] [address] Dr. Heather Bowser MCHC (RBC) [Mass/Vol] 33.0 g/dL Normal 29.9-35.2 [facility] Comment on above: Performed By: #### C MP, LIPID #### [facility] [address] [place] [address] Dr. Heather Bowser MCV (RBC) [Entitic vol] 97.1 fL Normal 81.0-99.0 [facility] Comment on above: Performed By: #### C MP, LIPID #### [facility] [address] [place] [address] Dr. Heather Bowser MONO # 1.3 103/ul Critically high 0.3-0.8 [facility] Comment on above: Performed By: #### C MP, LIPID #### [facility] [address] [place] [address] Dr. Heather Bowser Monocytes/100 WBC (Bld) 8.7 % Normal 1.7-12.0 [facility] Comment on above: Performed By: #### C MP, LIPID #### [facility] [address] [place] [address] Dr. Heather Bowser NEUT # 8.6 103/ul Critically high 1.4-6.5 [facility] Comment on above: Performed By: #### C MP, LIPID #### [facility] [address] [place] [address] Dr. Heather Bowesr Neutrophils/100 WBC (Bld) 59.2 % Normal 43.0-75.0 [facility] Comment on above: Performed By: #### C MP, LIPID #### [facility] [address] [place] [address] Dr. Heather Bowser Platelet mean volume (Bld) [Entitic vol] 9.6 fL Normal 9.5-13.5 [facility] Comment on above: Performed By: #### C MP, LIPID #### [facility] [address] [address] [address] Heather Bowser PLT 353 103/ul Normal 150-450 [facility] Comment on above: Performed By: #### C MP, LIPID #### [facility] [address] [address] [address] Heather Bowser RBC 4.43 106/ul Normal 4.20-5.40 [facility] Comment on above: Performed By: #### C MP, LIPID #### [facility] [address] [address] [address] Heather Bowser WBC 14.5 103/ul Critically high 4.0-11.0 [facility] Comment on above: Performed By: #### C MP, LIPID #### [facility] [address] [place] [address] Dr. Heather Bowser CRPon 12-07-2021 CRP [Mass/Vol] mg/L Normal <=1.0 [facility] Comment on above: Performed By: #### C MP, TSH, CRP, LIPID, URIC #### [facility] [address] [address] [address] Heather Bowser GLYCOHEMOGLOBIN A1Con 2021 ADA RECOMMENDATION SEE BELOW Normal [facility] Comment on above: Result Comment: ADA RECOMMENDED LIMIT 4.0 - 6.0 ADA THERAPEUTIC TARGET < 7.0 ACTION SUGGESTED > 7.0 Performed By: #### A 1C #### [facility] [address] [place] [address] Dr. Heather Bowser Glucose [Mass/Vol] 117 mg/dL Normal [facility] Comment on above: Performed By: #### A 1C #### [facility] [address] [place] [address] Dr. Heather Bowser HbA1c (Bld) [Mass fraction] 5.7 % Normal 4.5-6.2 [facility] Comment on above: Performed By: #### A 1C #### [facility] [address] [place] [address] Dr. Heather Bowser IRONon 12-07-2021 Iron [Mass/Vol] 153.0 ug/dL Normal 50.0-170.0 [facility] Comment on above: Performed By: #### I VINNIE #### [facility] [address] [address] [address] Heather Bowser LIPID PROFILEon 12-07-2021 CHOL-HDL RATIO NORM SEE BELOW Normal [facility] Comment on above: Result Comment: 3.3 - 4.4 LOW RISK 4.4 - 7.1 AVERAGE RISK 7.1 - 11.0 MODERATE RISK >11.0 HIGH RISK Performed By: #### C MP, TSH, CRP, LIPID, URIC #### [facility] [address] [address] [address] Heather Bowser Cholesterol [Mass/Vol] 240 mg/dL Critically high <=200 [facility] Comment on above: Performed By: #### C MP, TSH, CRP, LIPID, URIC #### [facility] [address] [address] [address] Heather Bowser Cholesterol in HDL [Mass/Vol] 57 mg/dL Normal 40-60 [facility] Comment on above: Performed By: #### C MP, TSH, CRP, LIPID, URIC #### [facility] [address] [address] [address] Heather Bowser Cholesterol in LDL [Mass/Vol] 157.2 mg/dL Normal [facility] Comment on above: Performed By: #### C MP, TSH, CRP, LIPID, URIC #### [facility] [address] [address] [address] Heather Bowser Cholesterol.total/Cho lesterol in HDL [Mass ratio] 4.2 {ratio} Normal [facility] Comment on above: Performed By: #### C MP, TSH, CRP, LIPID, URIC #### [facility] [address] [address] [address] Heather Bowser HDL NORMAL > or = 60 mg/dl - LOW CARDIOVASCULAR RISK <40 mg/dl - HIGH CARDIOVASCULAR RISK Normal [facility] Comment on above: Performed By: #### C MP, TSH, CRP, LIPID, URIC #### [facility] [address] [address] [address] Heather Bowser LDL CALC NORMAL SEE BELOW Normal [facility] Comment on above: Result Comment: <100 mg/dl OPTIMAL 100 - 129 mg/dl NEAR OR ABOVE OPTIMAL 130 - 159 mg/dl BORDERLINE HIGH 160 - 189 mg/dl HIGH >190 mg/dl VERY HIGH Performed By: #### C MP, TSH, CRP, LIPID, URIC #### [facility] [address] [address] [address] Heather Bowser Triglyceride [Mass/Vol] 129 mg/dL Normal <=150 [facility] Comment on above: Performed By: #### C MP, TSH, CRP, LIPID, URIC #### [facility] [address] [address] [address] Heather Bowser VLDL CALC 25.8 mg/dL Normal [facility] Comment on above: Performed By: #### C MP, TSH, CRP, LIPID, URIC #### [facility] [address] [address] [address] Heather Bowser PROF 14(COMP METB)on 022 Albumin [Mass/Vol] 3.6 g/dL Normal 3.4-5.0 [facility] Comment on above: Performed By: #### C MP, TSH, CRP, LIPID, URIC #### [facility] [address] [place] [address] Dr. Heather Bowser Albumin/Globulin [Mass ratio] 1.1 {ratio} Normal [facility] Comment on above: Performed By: #### C MP, TSH, CRP, LIPID, URIC #### [facility] [address] [place] [address] Dr. Heather Bowser ALP [Catalytic activity/Vol] 53 U/L Normal 46-116 [facility] Comment on above: Performed By: #### C MP, TSH, CRP, LIPID, URIC #### [facility] [address] [place] [address] Dr. Heather Bowser ALT [Catalytic activity/Vol] 20 U/L Normal 14-59 [facility] Comment on above: Performed By: #### C MP, TSH, CRP, LIPID, URIC #### [facility] [address] [address] [address] Heather Bowser Anion gap [Moles/Vol] 13.2 mmol/L Normal [facility] Comment on above: Performed By: #### C MP, TSH, CRP, LIPID, URIC #### [facility] [address] [address] [address] Heather Bowser AST [Catalytic activity/Vol] 10 U/L Critically low 15-37 [facility] Comment on above: Performed By: #### C MP, TSH, CRP, LIPID, URIC #### [facility] [address] [address] [address] Heather Bowser Bilirubin [Mass/Vol] 1.3 mg/dL Critically high 0.2-1.0 [facility] Comment on above: Performed By: #### C MP, TSH, CRP, LIPID, URIC #### [facility] [address] [place] [address] Dr. Heather Bowser Calcium [Mass/Vol] 8.6 mg/dL Normal 8.5-10.1 [facility] Comment on above: Performed By: #### C MP, TSH, CRP, LIPID, URIC #### [facility] [address] [place] [address] Dr. Heather Bowser Chloride [Moles/Vol] 103 mmol/L Normal 98-107 [facility] Comment on above: Performed By: #### C MP, TSH, CRP, LIPID, URIC #### [facility] [address] [place] [address] Dr. Heather Bowser CO2 [Moles/Vol] 28.2 mmol/L Normal 21.0-32.0 [facility] Comment on above: Performed By: #### C MP, TSH, CRP, LIPID, URIC #### [facility] [address] [place] [address] Dr. Heather Bowser Creatinine [Mass/Vol] 0.77 mg/dL Normal 0.55-1.02 [facility] Comment on above: Performed By: #### C MP, TSH, CRP, LIPID, URIC #### [facility] [address] [address] [address] Heather Bowser EGFR-AF BELARUSIAN >60 Normal >=60 [facility] Comment on above: Performed By: #### C MP, TSH, CRP, LIPID, URIC #### [facility] [address] [address] [address] Heather Bowser EGFR-NON AF BELARUSIAN >60 Normal >=60 [facility] Comment on above: Performed By: #### C MP, TSH, CRP, LIPID, URIC #### [facility] [address] [place] [address] Dr. Heather Bowser Globulin (S) [Mass/Vol] 3.4 g/dL Normal [facility] Comment on above: Performed By: #### C MP, TSH, CRP, LIPID, URIC #### [facility] [address] [place] [address] Dr. Heather Bowser Glucose [Mass/Vol] 83 mg/dL Normal 74-106 [facility] Comment on above: Performed By: #### C MP, TSH, CRP, LIPID, URIC #### [facility] [address] [address] [address] Heather Bowser Potassium [Moles/Vol] 3.4 mmol/L Critically low 3.5-5.1 [facility] Comment on above: Performed By: #### C MP, TSH, CRP, LIPID, URIC #### [facility] [address] [place] [address] Dr. Heather Bowser Protein [Mass/Vol] 7.0 g/dL Normal 6.4-8.2 [facility] Comment on above: Performed By: #### C MP, TSH, CRP, LIPID, URIC #### [facility] [address] [address] [address] Heather Bowser Sodium [Moles/Vol] 141 mmol/L Normal 136-145 [facility] Comment on above: Performed By: #### C MP, TSH, CRP, LIPID, URIC #### [facility] [address] [place] [address] Dr. Heather Bowser Urea nitrogen [Mass/Vol] 19.0 mg/dL Critically high 7.0-18.0 [facility] Comment on above: Performed By: #### C MP, TSH, CRP, LIPID, URIC #### [facility] [address] [place] [address] Dr. Heather Bowser Urea nitrogen/Creatinine [Mass ratio] 24.7 mg/mg Normal [facility] Comment on above: Performed By: #### C MP, TSH, CRP, LIPID, URIC #### [facility] [address] [place] [address] Dr. Heather Bowser TSHon 12-07-2021 TSH 1.776 uIU/mL Normal 0.358-3.740 [facility] Comment on above: Performed By: #### C MP, TSH, CRP, LIPID, URIC #### [facility] [address] [place] [address] Dr. Heather Bowser URIC ACID SERUMon 12-07-2021 Urate [Mass/Vol] 4.3 mg/dL Normal 2.6-6.0 [facility] Comment on above: Performed By: #### C MP, TSH, CRP, LIPID, URIC #### [facility] [address] [place] [address] Dr. Heather Bowser SYMPTOMATIC COVID-19 ANTIGEN on 10-02-2021 EUA Statement SEE BELOW Normal [facility] Comment on above: Result Comment: This [...] Performed By: #### C MP, LIPID #### [facility] [address] [place], [place] [id number] Dr. Heather Bowser SARS-CoV-2 (COVID-19) RNA MARY+probe Ql (Unsp spec) Positive Critically abnormal NEGATIVE [facility] Comment on above: Performed By: #### C MP, LIPID #### [facility] [address] [address] [address] Heather Bowser GTT 2 HRon 05-25-2021 Glucose [Mass/Vol] 88 mg/dL Normal 74-106 [facility] Comment on above: Performed By: #### G TT2 #### [facility] [address] [address] [address] Heather Bowser Glucose [Mass/Vol] 152 mg/dL Normal [facility] Comment on above: Performed By: #### G TT2 #### [facility] [address] [address] [address] Heather Bowser Glucose [Mass/Vol] 112 mg/dL Normal [facility] Comment on above: Performed By: #### G TT2 #### [facility] [address] [address] [address] Heather Bowser Encounters Encounter Date Encounter Type Care Provider Facility Start: 12-14-2023 End: 12-14-2023 ambulatory HARSHAL SNEED Not Available Start: 12-05-2023 End: 12-05-2023 Emergency department patient visit SHE[facility] TOU[facility] Start: 05-17-2022 End: 05-18-[address] SHELLEY [...] Facility:[facility] Payers Date Payer Category Payer Unknown [id number] 2.16.84 [id number] 1984 Unknown [id number] 2.16.84 [id number] 1984 Unknown [id number] 2.16.84 [id number] 1984 Unknown [id number] 2.16.84 [id number] 1984 Unknown [id number] 2.16.84 [id number] 1984 Unknown [id number] 2.16.84 [id number] 1984 Unknown [id number] 2.16.84 [id number] 1984 Unknown [id number] 2.16.84 [id number] 1984 Unknown [id number] 2.16.84 [id number] 1984 Unknown [id number] 2.16.84 [id number] 1984 Unknown [id number] 2.16.84 [id number] 1984 Unknown [id number] 2.16.8 [id number] 1984 Unknown [id number] 2.16.84 [id number] 1959 Self-pay [id number] 1959 Unknown [id number] Clinical Note 11-06-2022 Note Date & Type Note Facility 02-09-2022 Note PROCEDURE: XR SKULL MIN 4 VIEW COMPARISON: None. HISTORY: Sinusitis FINDINGS: BONES:No fracture, acute abnormality, or significant arthropathy. SOFT TISSUES:Negative. No visible soft tissue swelling. EFFUSION:None visible. OTHER: Negative. IMPRESSION: No acute abnormality Electronically authenticated by: SARAN VELASCO Date: 2022-02-09 08:40 [facility] Summary Purpose Family History No Family History Records FoundNo Family History Records FoundNo Family History Records Found Advance Directives No Advanced Directives Records FoundNo Advanced Directives Records FoundNo Advanced Directives Records Found Additional Source Comments INFORMATION SOURCE (unrecogn ized section and content) DATE CREATED AUTHOR 05/24/[address] [facility] DATE CREATED AUTHOR AUTHOR'S ORGANIZ ATION 12/05/2023 [facility] DATE CREATED AUTHOR AUTHOR'S ORGANIZ ATION 12/15/2023 [facility] FOR RECORDS PERTAINING TO PATIENTS WHO ARE [...] BE BASED ON THE PRIMARY CLINICAL RECORDS. [employer] [facility]. provides no warranty or guarantee of the accuracy or completeness of information in this document.
== END 2023-12-22 19:01 | disposition home or self-care (01) ==
LOC: US 19:00
PROVIDERS: PCP Family Medicine; Visit Provider Obstetrics & Gynecology
DX: N92.0 Excessive and frequent menstruation with regular cycle (principal); N83.292 Other ovarian cyst, left side
CPT/HCPCS: 76830; 76856